=== PATIENT | male | born 1940 | race Caucasian/White ===

== ENCOUNTER 2018-10-08 17:10 | Observation (INO) ==
[2018-10-08] MEDS ORDERED: ALUM/MAG/SIMETH/LIDO VISC 1:1 30 ML BOTTLE PO STA (20:15)
[2018-10-08] MEDS ORDERED: ONDANSETRON 4 MG/2 ML VIAL IV STA (20:15)
[2018-10-08] MEDS ORDERED: INSULIN REGULAR 100 UNIT/ML IV STA ×2 (20:15→22:47)
[2018-10-08 20:33] LABS: Basophils % 0.2 % (0.0-0.8); Eosinophils % 0.1 % (0.00-10.9); Hematocrit 44.5 VOL% (42.0-52.0); Hemoglobin 14.7 GM/DL (14.0-18.0); Immature Granulocytes % 0.7 %; Immature Granulocytes Absolute 0.08 #; Lymphocytes # 0.9 10*3/uL (1.4-4.0); Lymphocytes % 7.1 % (21.2-54.2); Mean Corpuscular Volume 94.7 FL (87-102); Mean Platelet Volume 10.6 FL (9.6-12.0); Monocytes % 6.6 % (1.7-12.7); Neutrophils % 85.3 % (38.7-73.9); Platelet Count 236 T/CUMM (130-400); White Blood Count 12.3 T/CUMM (4-12)
[2018-10-08 20:58] LABS: Bilirubin,Total 1.1 MG/DL (0.2-1.0); Calcium 9.5 MG/DL (8.5-10.1); Osmolality,Calculated 295.5 MOS/KG (273-304); Total Protein 8.1 G/DL (6.4-8.3)
[2018-10-08 21:01] LABS: Troponin I 0.038 NG/ML (0.00-0.045)
[2018-10-08 22:51] LABS: Apearance,Urine CLEAR (Clear); Bilirubin,Urine Negative (Negative); Blood, Urine Negative (Negative); Glucose,Urine (UA) >=500 mg/dL (Negative); Hyaline Casts,Urine 4 /LPF (0-3); Ketones,Urine 80 mg/dL (Negative); Mucus,Urine Occasional /LPF (Occasional); Nitrite,Urine Negative (Negative); Protein,Urine Negative; RBC,Urine 3 /HPF (0-4); Urine Color Yellow (Yellow); Urine Specific Gravity 1.017 (1.001-1.035); Urine Urobilinogen < 2.0 EU/DL (0.2-1.0); WBC,Urine <1 /HPF (0-6)
[2018-10-08] MEDS ORDERED: SODIUM CHLORIDE 0.9% 1,000 ML IV STA (23:17)
[2018-10-08] MEDS ORDERED: ONDANSETRON 4 MG/2 ML VIAL IV PRN (23:57)
[2018-10-08] MEDS ORDERED: GLUCAGON 1 MG VIAL IM PRN (23:57)
[2018-10-08] MEDS ORDERED: ACETAMINOPHEN 325 MG TABLET PO PRN (23:57)
[2018-10-08] MEDS ORDERED: DEXTROSE 50% 25 GM/50 ML SYRINGE IV PRN (23:57)
[2018-10-09] MEDS ORDERED: diphenhydrAMINE CAP 25 MG CAPSULE PO PRN (00:03)
[2018-10-09] MEDS ORDERED: NICOTINE 21 MG/24 HR PATCH TRANSDERM PRN (00:03)
[2018-10-09] MEDS: LACTULOSE 20 GM/30 ML UDCUP PO SCH ×4 (02:39→13:22)
[2018-10-09] MEDS: INSULIN REGULAR 100 UNIT/ML SUBCUT SCH ×2 (02:44→05:39)
[2018-10-09] MEDS: SODIUM CHLORIDE 0.9% 1,000 ML IV SCH ×2 (03:07→12:53)
[2018-10-09 05:34] LABS: Albumin 3.4 G/DL (3.4-5.0); Calcium 8.7 MG/DL (8.5-10.1); Total Protein 6.6 G/DL (6.4-8.3)
[2018-10-09] MEDS ORDERED: INSULIN LISPRO 100 UNIT/ML SUBCUT PRN (07:40)
[2018-10-09] MEDS ORDERED: PANTOPRAZOLE 40 MG TABLET PO SCH (09:00)
[2018-10-09] MEDS ORDERED: POLYETHYLENE GLYCOL POWDER 17 GM PACK PO SCH (09:00)
[2018-10-09] MEDS ORDERED: DOCUSATE SODIUM 100 MG CAPSULE PO SCH (09:00)
[2018-10-09 16:23] VITALS: BP 159/80
[2018-10-09] MEDS ORDERED: glipiZIDE 5 MG TABLET PO SCH (16:30)
[2018-10-09] MEDS ORDERED: sitaGLIPtin 25 MG TABLET PO SCH (21:00)
== END 2018-10-09 17:40 | disposition home or self-care (01) ==
LOC: N.EDINP 17:10 → N.ED 17:10 → N.2E 10-09 00:56
PROVIDERS: ADMIT Hospitalist; ATTEND Hospitalist

== ENCOUNTER 2019-05-25 01:05 | Inpatient (IN) ==
[2019-05-25 01:52] LABS: Basophils # 0.1 10*3/uL (0.0-0.2); Eosinophils # 0.3 10*3/uL (0.0-0.87); Eosinophils % 3.7 % (0.00-10.9); Hemoglobin 14.4 GM/DL (14.0-18.0); Immature Granulocytes % 0.5 %; Immature Granulocytes Absolute 0.04 #; Lymphocytes # 1.2 10*3/uL (1.4-4.0); Mean Corpuscular HGB Conc 33.5 GM/DL (32-36); Mean Corpuscular Volume 93.3 FL (87-102); Mean Platelet Volume 10.2 FL (9.6-12.0); Monocytes % 7.9 % (1.7-12.7); Neutrophils % 70.9 % (38.7-73.9); Platelet Count 191 T/CUMM (130-400); Red Blood Count 4.61 MC/CUMM (3.8-5.5); Red Cell Distribution Width 13.2 % (9.3-17.3); White Blood Count 7.3 T/CUMM (4-12)
[2019-05-25 02:08] LABS: Calcium 8.9 MG/DL (8.5-10.1); Osmolality,Calculated 282.4 MOS/KG (273-304)
[2019-05-25] MEDS ORDERED: MORPHINE 4 MG/1 ML VIAL IV STA (02:38)
[2019-05-25] MEDS ORDERED: HYDROmorphone 2 MG/1 ML VIAL IV PRN ×3 (04:41→08:57)
[2019-05-25] MEDS ORDERED: ONDANSETRON 4 MG/2 ML VIAL IV PRN (04:42)
[2019-05-25] MEDS ORDERED: ACETAMINOPHEN 325 MG TABLET PO PRN (04:42)
[2019-05-25] MEDS ORDERED: SODIUM CHLORIDE 0.9% 1,000 ML IV SCH (05:00)
[2019-05-25] MEDS ORDERED: GLUCAGON 1 MG VIAL IM PRN (05:21)
[2019-05-25] MEDS ORDERED: DEXTROSE 50% 25 GM/50 ML VIAL IV PRN (05:21)
[2019-05-25] MEDS ORDERED: MAGNESIUM SULF RIDER 2 GM in PREMIX 1 EACH IV PRN (05:30)
[2019-05-25] MEDS ORDERED: MAGNESIUM SULF RIDER 4 GM in PREMIX 1 EACH IV PRN (05:30)
[2019-05-25] MEDS ORDERED: POTASSIUM CHLORIDE RIDER 10 MEQ in PREMIX 1 EACH IV PRN (05:30)
[2019-05-25 05:42] LABS: INR 1.1; PT Patient Result 12.3 SECS (9.6-12.2); Partial Thromboplastin Time 26.7 SECS (20.8-36.0)
[2019-05-25] MEDS: INSULIN LISPRO 100 UNIT/ML SUBCUT SCH ×4 (06:38→23:45)
[2019-05-25] MEDS ORDERED: ceFAZolin 2,000 MG in PREMIX 1 EACH IV ONE (06:48)
[2019-05-25] MEDS: atenoloL 50 MG TABLET PO SCH (07:54)
[2019-05-25] MEDS ORDERED: TEMAZEPAM 7.5 MG CAPSULE PO PRN (08:43)
[2019-05-25] MEDS ORDERED: BISACODYL 10 MG SUPP RECTAL PRN (08:43)
[2019-05-25] MEDS ORDERED: LACTULOSE 20 GM/30 ML UDCUP PO PRN (08:43)
[2019-05-25] MEDS ORDERED: PROMETHAZINE 25 MG/1 ML VIAL IM PRN (08:43)
[2019-05-25] MEDS ORDERED: diphenhydrAMINE CAP 25 MG CAPSULE PO PRN (08:43)
[2019-05-25] MEDS ORDERED: INSULIN LISPRO 100 UNIT/ML SUBCUT SCH (09:00)
[2019-05-25] MEDS ORDERED: Fluticasone Furoate-Vilanterol [Breo Ellipta] INH SCH (09:00)
[2019-05-25] MEDS: NORTRIPTYLINE 25 MG CAPSULE PO SCH ×2 (09:12→20:56)
[2019-05-25] MEDS: CALCIUM (CARBONATE) 500 MG TABLET PO SCH (09:12)
[2019-05-25] MEDS: DOCUSATE SODIUM 100 MG CAPSULE PO SCH ×2 (09:12→20:56)
[2019-05-25] MEDS: MAGNESIUM OXIDE 400 MG TABLET PO SCH (09:12)
[2019-05-25] MEDS: MONTELUKAST 10 MG TABLET PO SCH (09:13)
[2019-05-25] MEDS: CLOPIDOGREL 75 MG TABLET PO SCH (09:13)
[2019-05-25] MEDS: FENOFIBRATE 145 MG TABLET PO SCH (09:13)
[2019-05-25] MEDS: PANTOPRAZOLE 40 MG TABLET PO SCH ×2 (09:14→20:56)
[2019-05-25] MEDS: OMEGA 3 ACID ETHYL ESTERS 1 GM CAPSULE PO SCH (09:14)
[2019-05-25] MEDS: MULTIVITAMIN (BEROCCA) TABLET PO SCH ×2 (09:14→20:56)
[2019-05-25] MEDS: SELENIUM 200 MCG TABLET PO SCH ×2 (09:19→20:56)
[2019-05-25] MEDS: LACTATED RINGERS 1,000 ML IV SCH (09:20)
[2019-05-25] MEDS ORDERED: TUBERCULIN SKIN TEST 0.1 ML SYRINGE INTRADERM ONE (09:42)
[2019-05-25] MEDS: FUROSEMIDE 40 MG TABLET PO SCH ×2 (10:07→16:46)
[2019-05-25] MEDS: LOSARTAN 50 MG TABLET PO SCH (10:07)
[2019-05-25] MEDS: Vitamin E 100 UNIT PO SCH ×2 (10:07→20:57)
[2019-05-25] MEDS: ISOSORBIDE MONONITRATE 30 MG TABLET PO SCH (10:07)
[2019-05-25 10:10] LABS: Apearance,Urine CLEAR (Clear); Bilirubin,Urine Negative (Negative); Blood, Urine Negative (Negative); Glucose,Urine (UA) Negative (Negative); Ketones,Urine Negative (Negative); Mucus,Urine Occasional /LPF (Occasional); Nitrite,Urine Negative (Negative); Protein,Urine Negative; RBC,Urine 1 /HPF (0-4); Urine Color Yellow (Yellow); Urine Specific Gravity 1.012 (1.001-1.035); Urine Urobilinogen < 2.0 EU/DL (0.2-1.0); WBC,Urine 1 /HPF (0-6)
[2019-05-25] MEDS ORDERED: propofoL 200 MG/20 ML VIAL IV ONE (10:11)
[2019-05-25] MEDS ORDERED: SEVOFLURANE 1 UNIT/15 MINUTE INH ONE (10:11)
[2019-05-25] MEDS ORDERED: fentaNYL 100 MCG/2 ML VIAL ONE (10:11)
[2019-05-25] MEDS ORDERED: LIDOCAINE 2% 5 ML VIAL ONE (10:11)
[2019-05-25] MEDS ORDERED: GLYCOPYRROLATE 0.4 MG/2 ML VIAL ONE (10:12)
[2019-05-25] MEDS ORDERED: ONDANSETRON 4 MG/2 ML VIAL ONE (10:12)
[2019-05-25] MEDS ORDERED: ETOMIDATE 40 MG/20 ML VIAL IV ONE (10:12)
[2019-05-25] MEDS ORDERED: ACETAMINOPHEN 1,000 MG/100 ML VIAL IV ONE (10:12)
[2019-05-25] MEDS ORDERED: PHENYLEPHRINE 1 MG/10 ML SYRINGE IV ONE (10:12)
[2019-05-25] MEDS ORDERED: LACTATED RINGERS 1,000 ML IV ONE (10:12)
[2019-05-25] MEDS ORDERED: NEOSTIGMINE 10 MG/10 ML VIAL ONE (10:12)
[2019-05-25] MEDS ORDERED: ROCURONIUM 100 MG/10 ML VIAL IV ONE (10:12)
[2019-05-25] MEDS ORDERED: SUCCINYLCHOLINE 200 MG/10 ML VIAL ONE (10:13)
[2019-05-25] MEDS: ceFAZolin 2,000 MG in PREMIX 1 EACH IV SCH ×2 (16:47→23:37)
[2019-05-25] MEDS: ATORVASTATIN 10 MG TABLET PO SCH (20:56)
[2019-05-26] MEDS: LACTATED RINGERS 1,000 ML IV SCH (01:25)
[2019-05-26] MEDS: INSULIN LISPRO 100 UNIT/ML SUBCUT SCH ×4 (06:15→23:23)
[2019-05-26 06:45] LABS: Basophils # 0.1 10*3/uL (0.0-0.2); Basophils % 0.6 % (0.0-0.8); Eosinophils # 0.1 10*3/uL (0.0-0.87); Eosinophils % 0.9 % (0.00-10.9); Hematocrit 30.7 VOL% (42.0-52.0); Hemoglobin 10.4 GM/DL (14.0-18.0); Immature Granulocytes % 0.3 %; Immature Granulocytes Absolute 0.04 #; Lymphocytes % 7.8 % (21.2-54.2); Mean Corpuscular HGB Conc 33.9 GM/DL (32-36); Mean Corpuscular Volume 94.8 FL (87-102); Mean Platelet Volume 10.8 FL (9.6-12.0); Monocytes % 10.7 % (1.7-12.7); Neutrophils % 79.7 % (38.7-73.9); Platelet Count 204 T/CUMM (130-400); Red Blood Count 3.24 MC/CUMM (3.8-5.5); Red Cell Distribution Width 13.3 % (9.3-17.3); White Blood Count 12.9 T/CUMM (4-12)
[2019-05-26 07:07] LABS: Calcium 8.5 MG/DL (8.5-10.1); Osmolality,Calculated 297.5 MOS/KG (273-304)
[2019-05-26] MEDS: FUROSEMIDE 40 MG TABLET PO SCH ×2 (10:16→17:32)
[2019-05-26] MEDS: MULTIVITAMIN (BEROCCA) TABLET PO SCH ×2 (10:18→20:28)
[2019-05-26] MEDS: DOCUSATE SODIUM 100 MG CAPSULE PO SCH ×2 (10:18→20:28)
[2019-05-26] MEDS: MAGNESIUM OXIDE 400 MG TABLET PO SCH (10:19)
[2019-05-26] MEDS: OMEGA 3 ACID ETHYL ESTERS 1 GM CAPSULE PO SCH (10:19)
[2019-05-26] MEDS: NORTRIPTYLINE 25 MG CAPSULE PO SCH ×2 (10:20→20:29)
[2019-05-26] MEDS: CALCIUM (CARBONATE) 500 MG TABLET PO SCH (10:20)
[2019-05-26] MEDS: PANTOPRAZOLE 40 MG TABLET PO SCH ×2 (10:21→20:29)
[2019-05-26] MEDS: CLOPIDOGREL 75 MG TABLET PO SCH (10:21)
[2019-05-26] MEDS: SELENIUM 200 MCG TABLET PO SCH ×2 (10:22→20:29)
[2019-05-26] MEDS: FENOFIBRATE 145 MG TABLET PO SCH (10:23)
[2019-05-26] MEDS: MONTELUKAST 10 MG TABLET PO SCH (10:23)
[2019-05-26] MEDS: Vitamin E 100 UNIT PO SCH ×2 (10:24→20:31)
[2019-05-26] MEDS ORDERED: SODIUM POLYSTYRENE SULFATE 15 GM/60 ML BOTTLE PO STA (10:30)
[2019-05-26] MEDS: atenoloL 50 MG TABLET PO SCH (13:46)
[2019-05-26] MEDS: LOSARTAN 50 MG TABLET PO SCH (13:47)
[2019-05-26] MEDS: ISOSORBIDE MONONITRATE 30 MG TABLET PO SCH (13:47)
[2019-05-26] MEDS: APIXABAN 5 MG TABLET PO SCH (20:28)
[2019-05-26] MEDS: ATORVASTATIN 10 MG TABLET PO SCH (20:29)
[2019-05-27 06:04] LABS: Basophils # 0.1 10*3/uL (0.0-0.2); Basophils % 0.5 % (0.0-0.8); Eosinophils # 0.3 10*3/uL (0.0-0.87); Eosinophils % 2.2 % (0.00-10.9); Hemoglobin 9.4 GM/DL (14.0-18.0); Immature Granulocytes % 0.8 %; Lymphocytes # 1.1 10*3/uL (1.4-4.0); Lymphocytes % 8.5 % (21.2-54.2); Mean Corpuscular HGB Conc 33.6 GM/DL (32-36); Mean Corpuscular Volume 92.4 FL (87-102); Monocytes % 12.2 % (1.7-12.7); NRBC # 0.03 10*3/uL; Neutrophils % 75.8 % (38.7-73.9); Platelet Count 206 T/CUMM (130-400); Red Blood Count 3.03 MC/CUMM (3.8-5.5); Red Cell Distribution Width 13.5 % (9.3-17.3); White Blood Count 12.8 T/CUMM (4-12)
[2019-05-27 06:19] LABS: Calcium 8.7 MG/DL (8.5-10.1); Osmolality,Calculated 292.2 MOS/KG (273-304)
[2019-05-27] MEDS: INSULIN LISPRO 100 UNIT/ML SUBCUT SCH ×4 (06:31→21:48)
[2019-05-27] MEDS ORDERED: SODIUM CHLORIDE 0.9% 500 ML IV ONE (08:41)
[2019-05-27] MEDS: FUROSEMIDE 40 MG TABLET PO SCH (09:03)
[2019-05-27] MEDS: Vitamin E 100 UNIT PO SCH ×2 (09:30→21:52)
[2019-05-27] MEDS: atenoloL 50 MG TABLET PO SCH (09:45)
[2019-05-27] MEDS: DOCUSATE SODIUM 100 MG CAPSULE PO SCH ×2 (09:46→21:41)
[2019-05-27] MEDS: OMEGA 3 ACID ETHYL ESTERS 1 GM CAPSULE PO SCH (09:46)
[2019-05-27] MEDS: ISOSORBIDE MONONITRATE 30 MG TABLET PO SCH (09:46)
[2019-05-27] MEDS: MULTIVITAMIN (BEROCCA) TABLET PO SCH ×2 (09:46→21:40)
[2019-05-27] MEDS: APIXABAN 5 MG TABLET PO SCH (09:46)
[2019-05-27] MEDS: MAGNESIUM OXIDE 400 MG TABLET PO SCH (09:46)
[2019-05-27] MEDS: FENOFIBRATE 145 MG TABLET PO SCH (09:47)
[2019-05-27] MEDS: CLOPIDOGREL 75 MG TABLET PO SCH (09:47)
[2019-05-27] MEDS: PANTOPRAZOLE 40 MG TABLET PO SCH ×2 (09:47→21:41)
[2019-05-27] MEDS: NORTRIPTYLINE 25 MG CAPSULE PO SCH (09:47)
[2019-05-27] MEDS: CALCIUM (CARBONATE) 500 MG TABLET PO SCH (09:47)
[2019-05-27] MEDS: MONTELUKAST 10 MG TABLET PO SCH (09:47)
[2019-05-27] MEDS: SELENIUM 200 MCG TABLET PO SCH ×2 (09:49→21:41)
[2019-05-27] MEDS: MAGNESIUM HYDROXIDE SUSP 30 ML UDCUP PO PRN (09:56)
[2019-05-27 09:58] LABS: Hemoglobin 9.2 GM/DL (14.0-18.0)
[2019-05-27] MEDS: SODIUM CHLORIDE 0.45% 1,000 ML IV SCH (12:56)
[2019-05-27] MEDS: SILODOSIN 8 MG CAPSULE PO SCH (17:09)
[2019-05-27] MEDS: DUTASTERIDE 0.5 MG CAPSULE PO SCH (21:40)
[2019-05-27] MEDS: ATORVASTATIN 10 MG TABLET PO SCH (21:41)
[2019-05-27] MEDS: INSULIN GLARGINE 100 UNIT/ML SUBCUT SCH (21:47)
[2019-05-28 06:03] LABS: Basophils % 0.3 % (0.0-0.8); Eosinophils # 0.2 10*3/uL (0.0-0.87); Eosinophils % 1.4 % (0.00-10.9); Hematocrit 25.5 VOL% (42.0-52.0); Hemoglobin 8.8 GM/DL (14.0-18.0); Immature Granulocytes % 1.2 %; Immature Granulocytes Absolute 0.17 #; Lymphocytes # 1.1 10*3/uL (1.4-4.0); Lymphocytes % 7.8 % (21.2-54.2); Mean Corpuscular HGB Conc 34.5 GM/DL (32-36); Mean Corpuscular Volume 93.8 FL (87-102); Mean Platelet Volume 10.6 FL (9.6-12.0); Monocytes % 9.3 % (1.7-12.7); NRBC # 0.14 10*3/uL; Platelet Count 229 T/CUMM (130-400); Red Blood Count 2.72 MC/CUMM (3.8-5.5); Red Cell Distribution Width 14.1 % (9.3-17.3); White Blood Count 13.9 T/CUMM (4-12)
[2019-05-28 06:18] LABS: Calcium 8.7 MG/DL (8.5-10.1); Osmolality,Calculated 287.3 MOS/KG (273-304)
[2019-05-28] MEDS ORDERED: APIXABAN 5 MG TABLET PO SCH (09:00)
[2019-05-28] MEDS: INSULIN LISPRO 100 UNIT/ML SUBCUT SCH ×4 (09:13→20:45)
[2019-05-28] MEDS: SODIUM CHLORIDE 0.45% 1,000 ML IV SCH ×2 (09:13→10:06)
[2019-05-28] MEDS: MAGNESIUM OXIDE 400 MG TABLET PO SCH (09:29)
[2019-05-28] MEDS: MONTELUKAST 10 MG TABLET PO SCH (09:30)
[2019-05-28] MEDS: ISOSORBIDE MONONITRATE 30 MG TABLET PO SCH (09:30)
[2019-05-28] MEDS: atenoloL 50 MG TABLET PO SCH (09:30)
[2019-05-28] MEDS: CALCIUM (CARBONATE) 500 MG TABLET PO SCH (09:30)
[2019-05-28] MEDS: DOCUSATE SODIUM 100 MG CAPSULE PO SCH ×2 (09:31→20:45)
[2019-05-28] MEDS: MULTIVITAMIN (BEROCCA) TABLET PO SCH ×2 (09:31→20:44)
[2019-05-28] MEDS: FENOFIBRATE 145 MG TABLET PO SCH (09:31)
[2019-05-28] MEDS: OMEGA 3 ACID ETHYL ESTERS 1 GM CAPSULE PO SCH (09:31)
[2019-05-28] MEDS: SELENIUM 200 MCG TABLET PO SCH ×2 (09:32→20:44)
[2019-05-28] MEDS: PANTOPRAZOLE 40 MG TABLET PO SCH ×2 (09:33→20:44)
[2019-05-28] MEDS ORDERED: SODIUM CHLORIDE 0.9% 1,000 ML IV PRN (09:40)
[2019-05-28] MEDS: MAGNESIUM HYDROXIDE SUSP 30 ML UDCUP PO PRN ×2 (09:48→15:40)
[2019-05-28] MEDS: Vitamin E 100 UNIT PO SCH ×2 (10:50→22:41)
[2019-05-28] MEDS: SILODOSIN 8 MG CAPSULE PO SCH (19:06)
[2019-05-28 20:01] LABS: Hematocrit 32.6 VOL% (42.0-52.0); Hemoglobin 10.9 GM/DL (14.0-18.0)
[2019-05-28] MEDS: DUTASTERIDE 0.5 MG CAPSULE PO SCH (20:44)
[2019-05-28] MEDS: ATORVASTATIN 10 MG TABLET PO SCH (20:44)
[2019-05-28] MEDS: INSULIN GLARGINE 100 UNIT/ML SUBCUT SCH (20:45)
[2019-05-28] MEDS: LACTATED RINGERS 1,000 ML IV SCH (22:56)
[2019-05-29] MEDS: SODIUM CHLORIDE 0.45% 1,000 ML IV SCH (02:17)
[2019-05-29 07:04] LABS: Basophils % 0.3 % (0.0-0.8); Eosinophils # 0.2 10*3/uL (0.0-0.87); Eosinophils % 1.3 % (0.00-10.9); Hematocrit 33.9 VOL% (42.0-52.0); Hemoglobin 11.4 GM/DL (14.0-18.0); Immature Granulocytes % 1.2 %; Immature Granulocytes Absolute 0.14 #; Lymphocytes # 1.4 10*3/uL (1.4-4.0); Lymphocytes % 11.5 % (21.2-54.2); Mean Corpuscular HGB Conc 33.6 GM/DL (32-36); Mean Corpuscular Volume 93.1 FL (87-102); Mean Platelet Volume 10.7 FL (9.6-12.0); Monocytes % 11.4 % (1.7-12.7); NRBC # 0.38 10*3/uL; Neutrophils % 74.3 % (38.7-73.9); Platelet Count 233 T/CUMM (130-400); Red Blood Count 3.64 MC/CUMM (3.8-5.5); Red Cell Distribution Width 14.5 % (9.3-17.3)
[2019-05-29 07:32] LABS: Calcium 8.9 MG/DL (8.5-10.1); Osmolality,Calculated 286.1 MOS/KG (273-304)
[2019-05-29 07:35] VITALS: BP 136/83
[2019-05-29] MEDS: INSULIN LISPRO 100 UNIT/ML SUBCUT SCH (07:58)
[2019-05-29] MEDS ORDERED: SODIUM POLYSTYRENE SULFATE 15 GM/60 ML BOTTLE PO ONE (08:03)
[2019-05-29] MEDS: DOCUSATE SODIUM 100 MG CAPSULE PO SCH (08:27)
[2019-05-29] MEDS: MONTELUKAST 10 MG TABLET PO SCH (08:28)
[2019-05-29] MEDS: SELENIUM 200 MCG TABLET PO SCH (08:28)
[2019-05-29] MEDS: OMEGA 3 ACID ETHYL ESTERS 1 GM CAPSULE PO SCH (08:28)
[2019-05-29] MEDS: MAGNESIUM OXIDE 400 MG TABLET PO SCH (08:28)
[2019-05-29] MEDS: PANTOPRAZOLE 40 MG TABLET PO SCH (08:28)
[2019-05-29] MEDS: atenoloL 50 MG TABLET PO SCH (08:28)
[2019-05-29] MEDS: MULTIVITAMIN (BEROCCA) TABLET PO SCH (08:29)
[2019-05-29] MEDS: Vitamin E 100 UNIT PO SCH (08:29)
[2019-05-29] MEDS: FENOFIBRATE 145 MG TABLET PO SCH (08:29)
[2019-05-29] MEDS: CALCIUM (CARBONATE) 500 MG TABLET PO SCH (08:29)
[2019-05-29] MEDS: ISOSORBIDE MONONITRATE 30 MG TABLET PO SCH (08:29)
[2019-05-30] MEDS ORDERED: FUROSEMIDE 40 MG/5 ML UDCUP PO SCH (09:00)
== END 2019-05-29 09:40 | disposition swing bed (61) | DRG 470 ==
LOC: EDBD → EDUNIT# → N.ED 01:05 → N.EDINP 03:07 → N.3E 04:07
PROVIDERS: ADMIT Hospitalist; ATTEND Hospitalist

== ENCOUNTER 2019-06-23 05:39 | Inpatient (IN) ==
[2019-06-22 11:11] LABS: Basophils % 0.4 % (0.0-0.8); Eosinophils # 0.2 10*3/uL (0.0-0.87); Eosinophils % 2.5 % (0.00-10.9); Hematocrit 37.3 VOL% (42.0-52.0); Hemoglobin 11.9 GM/DL (14.0-18.0); Immature Granulocytes % 0.6 %; Immature Granulocytes Absolute 0.05 #; Lymphocytes # 0.7 10*3/uL (1.4-4.0); Lymphocytes % 8.2 % (21.2-54.2); Mean Corpuscular HGB Conc 31.9 GM/DL (32-36); Mean Corpuscular Volume 94.4 FL (87-102); Monocytes % 8.2 % (1.7-12.7); Neutrophils % 80.1 % (38.7-73.9); Platelet Count 420 T/CUMM (130-400); Red Blood Count 3.95 MC/CUMM (3.8-5.5); Red Cell Distribution Width 13.9 % (9.3-17.3); White Blood Count 7.9 T/CUMM (4-12)
[2019-06-23] MEDS ORDERED: DEXMEDETOMIDINE 200 MCG/2 ML VIAL ONE (07:52)
[2019-06-23] MEDS: LACTATED RINGERS 1,000 ML IV SCH ×2 (08:07→15:10)
[2019-06-23] MEDS ORDERED: LIDOCAINE 1% 20 ML VIAL ONE (08:09)
[2019-06-23] MEDS ORDERED: LIDOCAINE 2% 5 ML VIAL ONE (09:06)
[2019-06-23] MEDS ORDERED: propofoL 200 MG/20 ML VIAL IV ONE (09:06)
[2019-06-23] MEDS ORDERED: PHENYLEPHRINE 1 MG/10 ML SYRINGE IV ONE (09:07)
[2019-06-23] MEDS ORDERED: fentaNYL 100 MCG/2 ML VIAL ONE (09:07)
[2019-06-23] MEDS ORDERED: ETOMIDATE 40 MG/20 ML VIAL IV ONE (09:07)
[2019-06-23] MEDS ORDERED: MAGNESIUM HYDROXIDE SUSP 30 ML UDCUP PO PRN (09:11)
[2019-06-23] MEDS ORDERED: diphenhydrAMINE CAP 25 MG CAPSULE PO PRN (09:11)
[2019-06-23] MEDS ORDERED: BISACODYL 10 MG SUPP RECTAL PRN (09:11)
[2019-06-23] MEDS ORDERED: ONDANSETRON 4 MG/2 ML VIAL IV PRN (09:11)
[2019-06-23] MEDS ORDERED: LACTULOSE 20 GM/30 ML UDCUP PO PRN (09:11)
[2019-06-23] MEDS ORDERED: DEXTROSE 10% 25 GM/250 ML BAG IV PRN (09:14)
[2019-06-23] MEDS ORDERED: GLUCAGON 1 MG VIAL IM PRN ×2 (09:14→15:32)
[2019-06-23] MEDS ORDERED: INSULIN REGULAR 100 UNIT/ML SUBCUT SCH (11:30)
[2019-06-23] MEDS ORDERED: INSULIN LISPRO 100 UNIT/ML SUBCUT SCH (11:30)
[2019-06-23] MEDS: MORPHINE 4 MG/1 ML VIAL IV PRN ×2 (15:00→20:33)
[2019-06-23] MEDS ORDERED: DEXTROSE 50% 25 GM/50 ML VIAL IV PRN (15:32)
[2019-06-23] MEDS: SULFAMETHOX/TRIMETHOPRIM 800-160 MG TABLET PO SCH ×2 (20:08→20:34)
[2019-06-23] MEDS: ceFAZolin 1,000 MG in SYRINGE 1 EACH IV SCH ×2 (20:09→22:55)
[2019-06-23] MEDS: SELENIUM 200 MCG TABLET PO SCH (20:34)
[2019-06-23] MEDS: APIXABAN 5 MG TABLET PO SCH (20:34)
[2019-06-23] MEDS: ATORVASTATIN 10 MG TABLET PO SCH (20:34)
[2019-06-23] MEDS: CYANOCOBALAMIN 500 MCG TABLET PO SCH (20:34)
[2019-06-23] MEDS: NORTRIPTYLINE 25 MG CAPSULE PO SCH ×2 (20:34→20:51)
[2019-06-23] MEDS: ASCORBIC ACID 500 MG TABLET PO SCH (20:34)
[2019-06-23] MEDS: PANTOPRAZOLE 40 MG TABLET PO SCH (20:34)
[2019-06-23] MEDS: DUTASTERIDE 0.5 MG CAPSULE PO SCH (20:44)
[2019-06-23] MEDS: INSULIN GLARGINE 100 UNIT/ML SUBCUT SCH (20:45)
[2019-06-23] MEDS: LACTULOSE 20 GM/30 ML UDCUP PO SCH (20:51)
[2019-06-23] MEDS: INSULIN LISPRO 100 UNIT/ML SUBCUT SCH (21:24)
[2019-06-24 05:42] LABS: Basophils # 0.1 10*3/uL (0.0-0.2); Basophils % 0.8 % (0.0-0.8); Eosinophils # 0.2 10*3/uL (0.0-0.87); Eosinophils % 1.9 % (0.00-10.9); Hematocrit 36.3 VOL% (42.0-52.0); Hemoglobin 11.6 GM/DL (14.0-18.0); Immature Granulocytes % 0.5 %; Immature Granulocytes Absolute 0.04 #; Lymphocytes # 0.9 10*3/uL (1.4-4.0); Lymphocytes % 11.1 % (21.2-54.2); Mean Corpuscular Volume 93.6 FL (87-102); Mean Platelet Volume 9.8 FL (9.6-12.0); Monocytes % 10.6 % (1.7-12.7); Neutrophils % 75.1 % (38.7-73.9); Platelet Count 431 T/CUMM (130-400); Red Blood Count 3.88 MC/CUMM (3.8-5.5); Red Cell Distribution Width 13.8 % (9.3-17.3); White Blood Count 7.8 T/CUMM (4-12)
[2019-06-24 06:10] LABS: Calcium 9.1 MG/DL (8.5-10.1)
[2019-06-24 06:11] LABS: Osmolality,Calculated 273.1 MOS/KG (273-304)
[2019-06-24] MEDS: ceFAZolin 1,000 MG in SYRINGE 1 EACH IV SCH ×2 (06:19→15:34)
[2019-06-24] MEDS: MORPHINE 4 MG/1 ML VIAL IV PRN (06:58)
[2019-06-24] MEDS: MAGNESIUM OXIDE 400 MG TABLET PO SCH ×2 (07:47→09:33)
[2019-06-24] MEDS: SILODOSIN 8 MG CAPSULE PO SCH ×2 (07:48→17:46)
[2019-06-24] MEDS: LACTULOSE 20 GM/30 ML UDCUP PO SCH (09:32)
[2019-06-24] MEDS: LOSARTAN 50 MG TABLET PO SCH (09:33)
[2019-06-24] MEDS: SULFAMETHOX/TRIMETHOPRIM 800-160 MG TABLET PO SCH ×2 (09:33→20:31)
[2019-06-24] MEDS: CALCIUM (CARBONATE) 500 MG TABLET PO SCH (09:33)
[2019-06-24] MEDS: MONTELUKAST 10 MG TABLET PO SCH (09:33)
[2019-06-24] MEDS: OMEGA 3 ACID ETHYL ESTERS 1 GM CAPSULE PO SCH (09:33)
[2019-06-24] MEDS: CYANOCOBALAMIN 500 MCG TABLET PO SCH ×2 (09:33→20:31)
[2019-06-24] MEDS: SELENIUM 200 MCG TABLET PO SCH (09:33)
[2019-06-24] MEDS: NORTRIPTYLINE 25 MG CAPSULE PO SCH ×3 (09:33→20:31)
[2019-06-24] MEDS: FUROSEMIDE 40 MG TABLET PO SCH (09:33)
[2019-06-24] MEDS: APIXABAN 5 MG TABLET PO SCH ×2 (09:33→20:31)
[2019-06-24] MEDS: FENOFIBRATE 145 MG TABLET PO SCH (09:34)
[2019-06-24] MEDS: VITAMIN E 400 UNIT CAPSULE PO SCH (09:34)
[2019-06-24] MEDS: ISOSORBIDE MONONITRATE 30 MG TABLET PO SCH (09:34)
[2019-06-24] MEDS: INSULIN LISPRO 100 UNIT/ML SUBCUT SCH ×3 (09:34→20:33)
[2019-06-24] MEDS: ASCORBIC ACID 500 MG TABLET PO SCH ×2 (09:34→20:31)
[2019-06-24] MEDS: atenoloL 50 MG TABLET PO SCH (09:34)
[2019-06-24] MEDS: PANTOPRAZOLE 40 MG TABLET PO SCH ×2 (09:34→20:31)
[2019-06-24] MEDS: FLUTICASONE FUROATE VILANTEROL INH SCH (09:35)
[2019-06-24 10:08] LABS: Bilirubin,Direct 0.18 MG/DL (0.0-0.20); Bilirubin,Indirect 0.2 MG/DL (0.0-1.0); Bilirubin,Total 0.4 MG/DL (0.2-1.0); Total Protein 6.5 G/DL (6.4-8.3)
[2019-06-24] MEDS ORDERED: BISACODYL 5 MG TABLET PO ONE (16:08)
[2019-06-24] MEDS: ATORVASTATIN 10 MG TABLET PO SCH (20:31)
[2019-06-24] MEDS: DUTASTERIDE 0.5 MG CAPSULE PO SCH (20:31)
[2019-06-24] MEDS: INSULIN GLARGINE 100 UNIT/ML SUBCUT SCH (20:36)
[2019-06-25] MEDS: ceFAZolin 1,000 MG in SYRINGE 1 EACH IV SCH ×3 (01:20→16:20)
[2019-06-25] MEDS: NORTRIPTYLINE 25 MG CAPSULE PO SCH ×5 (04:01→21:19)
[2019-06-25] MEDS: LACTULOSE 20 GM/30 ML UDCUP PO SCH ×3 (04:02→21:19)
[2019-06-25] MEDS: SELENIUM 200 MCG TABLET PO SCH ×3 (04:02→21:19)
[2019-06-25 05:04] LABS: Basophils # 0.1 10*3/uL (0.0-0.2); Basophils % 0.8 % (0.0-0.8); Eosinophils # 0.2 10*3/uL (0.0-0.87); Eosinophils % 2.3 % (0.00-10.9); Hemoglobin 11.1 GM/DL (14.0-18.0); Immature Granulocytes % 0.5 %; Immature Granulocytes Absolute 0.04 #; Lymphocytes # 0.8 10*3/uL (1.4-4.0); Lymphocytes % 10.9 % (21.2-54.2); Mean Corpuscular HGB Conc 32.6 GM/DL (32-36); Mean Corpuscular Volume 91.6 FL (87-102); Mean Platelet Volume 9.7 FL (9.6-12.0); Monocytes % 9.2 % (1.7-12.7); Neutrophils % 76.3 % (38.7-73.9); Platelet Count 380 T/CUMM (130-400); Red Blood Count 3.71 MC/CUMM (3.8-5.5); Red Cell Distribution Width 13.5 % (9.3-17.3); White Blood Count 7.4 T/CUMM (4-12)
[2019-06-25 05:43] LABS: Calcium 8.6 MG/DL (8.5-10.1); Osmolality,Calculated 272.2 MOS/KG (273-304)
[2019-06-25] MEDS: FLUTICASONE FUROATE VILANTEROL INH SCH (08:15)
[2019-06-25] MEDS: INSULIN LISPRO 100 UNIT/ML SUBCUT SCH ×3 (08:16→22:58)
[2019-06-25] MEDS: atenoloL 50 MG TABLET PO SCH (08:27)
[2019-06-25] MEDS: VITAMIN E 400 UNIT CAPSULE PO SCH (08:27)
[2019-06-25] MEDS: FENOFIBRATE 145 MG TABLET PO SCH (08:27)
[2019-06-25] MEDS: OMEGA 3 ACID ETHYL ESTERS 1 GM CAPSULE PO SCH (08:27)
[2019-06-25] MEDS: LOSARTAN 50 MG TABLET PO SCH (08:28)
[2019-06-25] MEDS: ISOSORBIDE MONONITRATE 30 MG TABLET PO SCH (08:28)
[2019-06-25] MEDS: ASCORBIC ACID 500 MG TABLET PO SCH ×2 (08:28→21:19)
[2019-06-25] MEDS: FUROSEMIDE 40 MG TABLET PO SCH (08:28)
[2019-06-25] MEDS: SULFAMETHOX/TRIMETHOPRIM 800-160 MG TABLET PO SCH ×2 (08:28→21:18)
[2019-06-25] MEDS: CALCIUM (CARBONATE) 500 MG TABLET PO SCH (08:28)
[2019-06-25] MEDS: PANTOPRAZOLE 40 MG TABLET PO SCH ×2 (08:28→21:19)
[2019-06-25] MEDS: CYANOCOBALAMIN 500 MCG TABLET PO SCH ×2 (08:29→21:19)
[2019-06-25] MEDS: APIXABAN 5 MG TABLET PO SCH ×2 (08:29→21:19)
[2019-06-25] MEDS: MAGNESIUM OXIDE 400 MG TABLET PO SCH (08:38)
[2019-06-25] MEDS: MONTELUKAST 10 MG TABLET PO SCH (08:38)
[2019-06-25] MEDS: SILODOSIN 8 MG CAPSULE PO SCH (16:21)
[2019-06-25] MEDS: DUTASTERIDE 0.5 MG CAPSULE PO SCH (21:18)
[2019-06-25] MEDS: ATORVASTATIN 10 MG TABLET PO SCH (21:18)
[2019-06-25] MEDS: INSULIN GLARGINE 100 UNIT/ML SUBCUT SCH (21:19)
[2019-06-26] MEDS: ceFAZolin 1,000 MG in SYRINGE 1 EACH IV SCH (00:52)
[2019-06-26 05:39] LABS: Basophils % 0.4 % (0.0-0.8); Eosinophils # 0.2 10*3/uL (0.0-0.87); Eosinophils % 1.7 % (0.00-10.9); Hematocrit 34.1 VOL% (42.0-52.0); Hemoglobin 11.1 GM/DL (14.0-18.0); Immature Granulocytes % 0.3 %; Immature Granulocytes Absolute 0.03 #; Lymphocytes # 0.8 10*3/uL (1.4-4.0); Lymphocytes % 8.4 % (21.2-54.2); Mean Corpuscular HGB Conc 32.6 GM/DL (32-36); Mean Corpuscular Volume 91.2 FL (87-102); Mean Platelet Volume 9.5 FL (9.6-12.0); Monocytes % 9.5 % (1.7-12.7); Neutrophils % 79.7 % (38.7-73.9); Platelet Count 364 T/CUMM (130-400); Red Blood Count 3.74 MC/CUMM (3.8-5.5); Red Cell Distribution Width 13.6 % (9.3-17.3)
[2019-06-26] MEDS ORDERED: ceFAZolin 1,000 MG in SYRINGE 1 EACH IV SCH (09:00)
[2019-06-26] MEDS: LACTULOSE 20 GM/30 ML UDCUP PO SCH ×2 (09:19→21:10)
[2019-06-26] MEDS: SULFAMETHOX/TRIMETHOPRIM 800-160 MG TABLET PO SCH ×2 (09:19→21:10)
[2019-06-26] MEDS: FENOFIBRATE 145 MG TABLET PO SCH (09:19)
[2019-06-26] MEDS: OMEGA 3 ACID ETHYL ESTERS 1 GM CAPSULE PO SCH (09:19)
[2019-06-26] MEDS: NORTRIPTYLINE 25 MG CAPSULE PO SCH ×4 (09:20→21:11)
[2019-06-26] MEDS: VITAMIN E 400 UNIT CAPSULE PO SCH (09:20)
[2019-06-26] MEDS: MONTELUKAST 10 MG TABLET PO SCH (09:20)
[2019-06-26] MEDS: CALCIUM (CARBONATE) 500 MG TABLET PO SCH (09:20)
[2019-06-26] MEDS: SELENIUM 200 MCG TABLET PO SCH ×2 (09:20→21:10)
[2019-06-26] MEDS: MAGNESIUM OXIDE 400 MG TABLET PO SCH (09:20)
[2019-06-26] MEDS: APIXABAN 5 MG TABLET PO SCH ×2 (09:21→21:10)
[2019-06-26] MEDS: atenoloL 50 MG TABLET PO SCH (09:21)
[2019-06-26] MEDS: ASCORBIC ACID 500 MG TABLET PO SCH ×2 (09:21→21:10)
[2019-06-26] MEDS: ISOSORBIDE MONONITRATE 30 MG TABLET PO SCH (09:21)
[2019-06-26] MEDS: CYANOCOBALAMIN 500 MCG TABLET PO SCH ×2 (09:21→21:10)
[2019-06-26] MEDS: PANTOPRAZOLE 40 MG TABLET PO SCH ×2 (09:21→21:10)
[2019-06-26] MEDS: LOSARTAN 50 MG TABLET PO SCH (09:21)
[2019-06-26] MEDS: FUROSEMIDE 40 MG TABLET PO SCH (09:21)
[2019-06-26] MEDS: INSULIN LISPRO 100 UNIT/ML SUBCUT SCH ×3 (09:22→21:11)
[2019-06-26] MEDS: FLUTICASONE FUROATE VILANTEROL INH SCH (09:22)
[2019-06-26] MEDS ORDERED: MAGNESIUM CITRATE 300 ML BOTTLE PO ONE (10:57)
[2019-06-26] MEDS: SILODOSIN 8 MG CAPSULE PO SCH (16:08)
[2019-06-26] MEDS: traMADol 50 MG TABLET PO PRN (17:30)
[2019-06-26] MEDS: DUTASTERIDE 0.5 MG CAPSULE PO SCH (21:10)
[2019-06-26] MEDS: ATORVASTATIN 10 MG TABLET PO SCH (21:10)
[2019-06-26] MEDS: INSULIN GLARGINE 100 UNIT/ML SUBCUT SCH (21:10)
[2019-06-27] MEDS: FLUTICASONE FUROATE VILANTEROL INH SCH (08:19)
[2019-06-27] MEDS: INSULIN LISPRO 100 UNIT/ML SUBCUT SCH ×3 (08:19→21:00)
[2019-06-27] MEDS: FENOFIBRATE 145 MG TABLET PO SCH (09:54)
[2019-06-27] MEDS: VITAMIN E 400 UNIT CAPSULE PO SCH (09:54)
[2019-06-27] MEDS: MAGNESIUM OXIDE 400 MG TABLET PO SCH (09:54)
[2019-06-27] MEDS: ASCORBIC ACID 500 MG TABLET PO SCH ×2 (09:54→20:57)
[2019-06-27] MEDS: ISOSORBIDE MONONITRATE 30 MG TABLET PO SCH (09:55)
[2019-06-27] MEDS: SULFAMETHOX/TRIMETHOPRIM 800-160 MG TABLET PO SCH ×2 (09:55→20:57)
[2019-06-27] MEDS: PANTOPRAZOLE 40 MG TABLET PO SCH ×2 (09:55→20:57)
[2019-06-27] MEDS: SELENIUM 200 MCG TABLET PO SCH ×2 (09:55→20:57)
[2019-06-27] MEDS: APIXABAN 5 MG TABLET PO SCH ×2 (09:55→20:57)
[2019-06-27] MEDS: OMEGA 3 ACID ETHYL ESTERS 1 GM CAPSULE PO SCH (09:55)
[2019-06-27] MEDS: CYANOCOBALAMIN 500 MCG TABLET PO SCH ×2 (09:55→20:57)
[2019-06-27] MEDS: FUROSEMIDE 40 MG TABLET PO SCH (09:55)
[2019-06-27] MEDS: MONTELUKAST 10 MG TABLET PO SCH (09:55)
[2019-06-27] MEDS: NORTRIPTYLINE 25 MG CAPSULE PO SCH ×4 (09:55→20:59)
[2019-06-27] MEDS: CALCIUM (CARBONATE) 500 MG TABLET PO SCH (09:55)
[2019-06-27] MEDS: LOSARTAN 50 MG TABLET PO SCH (09:55)
[2019-06-27] MEDS: LACTULOSE 20 GM/30 ML UDCUP PO SCH ×2 (09:56→21:00)
[2019-06-27] MEDS: atenoloL 50 MG TABLET PO SCH (09:56)
[2019-06-27] MEDS: CIPROFLOXACIN INJ 400 MG in PREMIX 1 EACH IV SCH (12:32)
[2019-06-27] MEDS: SILODOSIN 8 MG CAPSULE PO SCH (17:13)
[2019-06-27] MEDS: DUTASTERIDE 0.5 MG CAPSULE PO SCH (20:57)
[2019-06-27] MEDS: ATORVASTATIN 10 MG TABLET PO SCH (20:57)
[2019-06-27] MEDS: INSULIN GLARGINE 100 UNIT/ML SUBCUT SCH (20:59)
[2019-06-28] MEDS: CIPROFLOXACIN INJ 400 MG in PREMIX 1 EACH IV SCH ×3 (00:58→23:21)
[2019-06-28 08:17] LABS: Basophils # 0.1 10*3/uL (0.0-0.2); Basophils % 0.6 % (0.0-0.8); Eosinophils # 0.2 10*3/uL (0.0-0.87); Eosinophils % 2.4 % (0.00-10.9); Hematocrit 36.6 VOL% (42.0-52.0); Hemoglobin 11.5 GM/DL (14.0-18.0); Immature Granulocytes % 0.5 %; Immature Granulocytes Absolute 0.04 #; Lymphocytes # 0.9 10*3/uL (1.4-4.0); Lymphocytes % 10.1 % (21.2-54.2); Mean Corpuscular HGB Conc 31.4 GM/DL (32-36); Mean Corpuscular Volume 92.4 FL (87-102); Mean Platelet Volume 9.5 FL (9.6-12.0); Monocytes % 7.8 % (1.7-12.7); Neutrophils % 78.6 % (38.7-73.9); Platelet Count 368 T/CUMM (130-400); Red Blood Count 3.96 MC/CUMM (3.8-5.5); Red Cell Distribution Width 13.6 % (9.3-17.3); White Blood Count 8.4 T/CUMM (4-12)
[2019-06-28 08:34] LABS: Calcium 9.2 MG/DL (8.5-10.1); Osmolality,Calculated 269.2 MOS/KG (273-304)
[2019-06-28] MEDS: SELENIUM 200 MCG TABLET PO SCH ×2 (08:47→21:14)
[2019-06-28] MEDS: MAGNESIUM OXIDE 400 MG TABLET PO SCH (08:47)
[2019-06-28] MEDS: PANTOPRAZOLE 40 MG TABLET PO SCH ×2 (08:47→21:14)
[2019-06-28] MEDS: NORTRIPTYLINE 25 MG CAPSULE PO SCH ×4 (08:47→21:17)
[2019-06-28] MEDS: VITAMIN E 400 UNIT CAPSULE PO SCH (08:47)
[2019-06-28] MEDS: FENOFIBRATE 145 MG TABLET PO SCH (08:48)
[2019-06-28] MEDS: CALCIUM (CARBONATE) 500 MG TABLET PO SCH (08:48)
[2019-06-28] MEDS: ISOSORBIDE MONONITRATE 30 MG TABLET PO SCH (08:48)
[2019-06-28] MEDS: FUROSEMIDE 40 MG TABLET PO SCH (08:48)
[2019-06-28] MEDS: SULFAMETHOX/TRIMETHOPRIM 800-160 MG TABLET PO SCH ×2 (08:48→21:14)
[2019-06-28] MEDS: LOSARTAN 50 MG TABLET PO SCH (08:49)
[2019-06-28] MEDS: CYANOCOBALAMIN 500 MCG TABLET PO SCH ×2 (08:49→21:14)
[2019-06-28] MEDS: MONTELUKAST 10 MG TABLET PO SCH (08:49)
[2019-06-28] MEDS: atenoloL 50 MG TABLET PO SCH (08:49)
[2019-06-28] MEDS: OMEGA 3 ACID ETHYL ESTERS 1 GM CAPSULE PO SCH (08:49)
[2019-06-28] MEDS: APIXABAN 5 MG TABLET PO SCH ×2 (08:49→21:16)
[2019-06-28] MEDS: ASCORBIC ACID 500 MG TABLET PO SCH ×2 (08:49→21:14)
[2019-06-28] MEDS: LACTULOSE 20 GM/30 ML UDCUP PO SCH ×2 (08:50→21:16)
[2019-06-28] MEDS: INSULIN LISPRO 100 UNIT/ML SUBCUT SCH ×4 (08:51→21:14)
[2019-06-28] MEDS: FLUTICASONE FUROATE VILANTEROL INH SCH (08:51)
[2019-06-28] MEDS: SILODOSIN 8 MG CAPSULE PO SCH (16:44)
[2019-06-28] MEDS: ATORVASTATIN 10 MG TABLET PO SCH (21:14)
[2019-06-28] MEDS: INSULIN GLARGINE 100 UNIT/ML SUBCUT SCH (21:14)
[2019-06-28] MEDS: DUTASTERIDE 0.5 MG CAPSULE PO SCH (21:16)
[2019-06-29] MEDS ORDERED: DEXMEDETOMIDINE 200 MCG/2 ML VIAL ONE (07:03)
[2019-06-29] MEDS ORDERED: LACTATED RINGERS 1,000 ML IV SCH (08:30)
[2019-06-29] MEDS ORDERED: LIDOCAINE 1% 20 ML VIAL ONE (08:38)
[2019-06-29] MEDS ORDERED: VANCOMYCIN 1,000 MG VIAL ONE (09:37)
[2019-06-29] MEDS ORDERED: TOBRAMYCIN 1.2 GM VIAL TOP ONE ×2 (09:37→09:41)
[2019-06-29] MEDS ORDERED: diphenhydrAMINE 50 MG/1 ML VIAL IV PRN (10:45)
[2019-06-29] MEDS ORDERED: PROMETHAZINE INJ 25 MG in SODIUM CHLORIDE 0.9% 50 ML IV PRN (10:45)
[2019-06-29] MEDS ORDERED: ONDANSETRON 4 MG/2 ML VIAL IV PRN (10:45)
[2019-06-29] MEDS ORDERED: MEPERIDINE 25 MG/1 ML VIAL IV PRN (10:45)
[2019-06-29] MEDS ORDERED: fentaNYL 100 MCG/2 ML VIAL ONE (10:46)
[2019-06-29] MEDS ORDERED: LIDOCAINE 2% 5 ML VIAL ONE (10:46)
[2019-06-29] MEDS ORDERED: PHENYLEPHRINE 1 MG/10 ML SYRINGE IV ONE (10:46)
[2019-06-29] MEDS ORDERED: ePHEDrine 50 MG/ML AMP ONE (10:46)
[2019-06-29] MEDS ORDERED: PHENYLEPHRINE 10 MG/1 ML VIAL IV ONE (10:46)
[2019-06-29] MEDS ORDERED: propofoL 200 MG/20 ML VIAL IV ONE (10:46)
[2019-06-29] MEDS ORDERED: SODIUM CHLORIDE 0.9% 300 ML IV ONE (10:47)
[2019-06-29] MEDS ORDERED: SODIUM CHLORIDE 0.9% 250 ML IV ONE (10:47)
[2019-06-29] MEDS ORDERED: GLUCAGON 1 MG VIAL IM PRN ×2 (10:59→11:00)
[2019-06-29] MEDS ORDERED: DEXTROSE 50% 25 GM/50 ML VIAL IV PRN (11:00)
[2019-06-29] MEDS: OMEGA 3 ACID ETHYL ESTERS 1 GM CAPSULE PO SCH (12:00)
[2019-06-29] MEDS: LACTULOSE 20 GM/30 ML UDCUP PO SCH ×2 (12:00→21:27)
[2019-06-29] MEDS: FLUTICASONE FUROATE VILANTEROL INH SCH (12:00)
[2019-06-29] MEDS: FUROSEMIDE 40 MG TABLET PO SCH (12:00)
[2019-06-29] MEDS: LOSARTAN 50 MG TABLET PO SCH (12:00)
[2019-06-29] MEDS: ISOSORBIDE MONONITRATE 30 MG TABLET PO SCH (12:00)
[2019-06-29] MEDS: SULFAMETHOX/TRIMETHOPRIM 800-160 MG TABLET PO SCH ×2 (12:00→21:28)
[2019-06-29] MEDS: CYANOCOBALAMIN 500 MCG TABLET PO SCH ×2 (12:01→21:28)
[2019-06-29] MEDS: CALCIUM (CARBONATE) 500 MG TABLET PO SCH (12:01)
[2019-06-29] MEDS: FENOFIBRATE 145 MG TABLET PO SCH (12:01)
[2019-06-29] MEDS: SELENIUM 200 MCG TABLET PO SCH ×2 (12:01→21:28)
[2019-06-29] MEDS: MAGNESIUM OXIDE 400 MG TABLET PO SCH (12:01)
[2019-06-29] MEDS: MONTELUKAST 10 MG TABLET PO SCH (12:01)
[2019-06-29] MEDS: NORTRIPTYLINE 25 MG CAPSULE PO SCH ×3 (12:01→21:28)
[2019-06-29] MEDS: atenoloL 50 MG TABLET PO SCH (12:01)
[2019-06-29] MEDS: ASCORBIC ACID 500 MG TABLET PO SCH ×2 (12:01→21:28)
[2019-06-29] MEDS: PANTOPRAZOLE 40 MG TABLET PO SCH ×2 (12:01→21:28)
[2019-06-29] MEDS: VITAMIN E 400 UNIT CAPSULE PO SCH (12:01)
[2019-06-29] MEDS: INSULIN REGULAR 100 UNIT/ML SUBCUT SCH ×3 (12:16→21:29)
[2019-06-29] MEDS: MORPHINE 4 MG/1 ML VIAL IV PRN (12:17)
[2019-06-29] MEDS: CIPROFLOXACIN INJ 400 MG in PREMIX 1 EACH IV SCH (12:17)
[2019-06-29] MEDS: INSULIN LISPRO 100 UNIT/ML SUBCUT SCH (12:34)
[2019-06-29] MEDS: APIXABAN 5 MG TABLET PO SCH (12:34)
[2019-06-29] MEDS: SILODOSIN 8 MG CAPSULE PO SCH (17:00)
[2019-06-29] MEDS: ATORVASTATIN 10 MG TABLET PO SCH (21:28)
[2019-06-29] MEDS: DUTASTERIDE 0.5 MG CAPSULE PO SCH (21:28)
[2019-06-29] MEDS: INSULIN GLARGINE 100 UNIT/ML SUBCUT SCH (21:28)
[2019-06-29] MEDS: APIXABAN 2.5 MG TABLET PO SCH (21:28)
[2019-06-30] MEDS: NORTRIPTYLINE 25 MG CAPSULE PO SCH ×5 (00:24→21:19)
[2019-06-30] MEDS: MORPHINE 4 MG/1 ML VIAL IV PRN (00:34)
[2019-06-30] MEDS: CIPROFLOXACIN INJ 400 MG in PREMIX 1 EACH IV SCH ×2 (00:36→11:52)
[2019-06-30 05:50] LABS: Basophils # 0.1 10*3/uL (0.0-0.2); Basophils % 0.5 % (0.0-0.8); Eosinophils % 0.3 % (0.00-10.9); Hematocrit 26.6 VOL% (42.0-52.0); Hemoglobin 8.6 GM/DL (14.0-18.0); Immature Granulocytes % 0.6 %; Immature Granulocytes Absolute 0.07 #; Lymphocytes # 1.2 10*3/uL (1.4-4.0); Lymphocytes % 10.2 % (21.2-54.2); Mean Corpuscular HGB Conc 32.3 GM/DL (32-36); Mean Corpuscular Volume 91.7 FL (87-102); Mean Platelet Volume 10.4 FL (9.6-12.0); Monocytes % 9.6 % (1.7-12.7); Neutrophils % 78.8 % (38.7-73.9); Platelet Count 329 T/CUMM (130-400); Red Cell Distribution Width 13.4 % (9.3-17.3); White Blood Count 12.1 T/CUMM (4-12)
[2019-06-30 06:06] LABS: Calcium 8.8 MG/DL (8.5-10.1); Osmolality,Calculated 272.8 MOS/KG (273-304)
[2019-06-30] MEDS: MONTELUKAST 10 MG TABLET PO SCH (08:49)
[2019-06-30] MEDS: FENOFIBRATE 145 MG TABLET PO SCH (08:49)
[2019-06-30] MEDS: VITAMIN E 400 UNIT CAPSULE PO SCH (08:49)
[2019-06-30] MEDS: CALCIUM (CARBONATE) 500 MG TABLET PO SCH (08:49)
[2019-06-30] MEDS: SELENIUM 200 MCG TABLET PO SCH ×2 (08:49→21:17)
[2019-06-30] MEDS: atenoloL 50 MG TABLET PO SCH (08:50)
[2019-06-30] MEDS: SULFAMETHOX/TRIMETHOPRIM 800-160 MG TABLET PO SCH ×2 (08:50→21:18)
[2019-06-30] MEDS: LOSARTAN 50 MG TABLET PO SCH (08:50)
[2019-06-30] MEDS: PANTOPRAZOLE 40 MG TABLET PO SCH ×2 (08:50→21:17)
[2019-06-30] MEDS: MAGNESIUM OXIDE 400 MG TABLET PO SCH (08:50)
[2019-06-30] MEDS: OMEGA 3 ACID ETHYL ESTERS 1 GM CAPSULE PO SCH (08:50)
[2019-06-30] MEDS: APIXABAN 2.5 MG TABLET PO SCH ×2 (08:51→21:19)
[2019-06-30] MEDS: ASCORBIC ACID 500 MG TABLET PO SCH ×2 (08:51→21:17)
[2019-06-30] MEDS: CYANOCOBALAMIN 500 MCG TABLET PO SCH ×2 (08:51→21:17)
[2019-06-30] MEDS: FUROSEMIDE 40 MG TABLET PO SCH (08:51)
[2019-06-30] MEDS: ISOSORBIDE MONONITRATE 30 MG TABLET PO SCH (08:51)
[2019-06-30] MEDS: FLUTICASONE FUROATE VILANTEROL INH SCH (08:51)
[2019-06-30] MEDS: INSULIN REGULAR 100 UNIT/ML SUBCUT SCH ×4 (08:52→21:18)
[2019-06-30] MEDS: LACTULOSE 20 GM/30 ML UDCUP PO SCH ×2 (08:57→21:18)
[2019-06-30] MEDS: SILODOSIN 8 MG CAPSULE PO SCH (16:48)
[2019-06-30] MEDS: ATORVASTATIN 10 MG TABLET PO SCH (21:17)
[2019-06-30] MEDS: DUTASTERIDE 0.5 MG CAPSULE PO SCH (21:18)
[2019-06-30] MEDS: INSULIN GLARGINE 100 UNIT/ML SUBCUT SCH (21:18)
[2019-07-01] MEDS: CIPROFLOXACIN INJ 400 MG in PREMIX 1 EACH IV SCH (01:49)
[2019-07-01] MEDS ORDERED: SODIUM CHLORIDE 0.9% 500 ML IV ONE (06:27)
[2019-07-01] MEDS ORDERED: SODIUM CHLORIDE 0.9% 1,000 ML IV PRN ×4 (06:30→14:11)
[2019-07-01] MEDS ORDERED: PHENYLEPHRINE DRIP 20 MG/250 ML PREMIX IV ONE (07:06)
[2019-07-01] MEDS ORDERED: EPINEPHrine 1 MG/ML VIAL ONE (07:06)
[2019-07-01] MEDS ORDERED: TOBRAMYCIN 1.2 GM VIAL TOP ONE (07:17)
[2019-07-01] MEDS ORDERED: VANCOMYCIN 1,000 MG VIAL ONE (07:17)
[2019-07-01] MEDS ORDERED: DEXMEDETOMIDINE 200 MCG/2 ML VIAL ONE (07:32)
[2019-07-01 07:42] LABS: Calcium 8.2 MG/DL (8.5-10.1); Osmolality,Calculated 274.1 MOS/KG (273-304)
[2019-07-01 07:56] LABS: Basophils # 0.1 10*3/uL (0.0-0.2); Basophils % 0.4 % (0.0-0.8); Eosinophils # 0.2 10*3/uL (0.0-0.87); Eosinophils % 1.7 % (0.00-10.9); Hematocrit 21.1 VOL% (42.0-52.0); Immature Granulocytes % 0.7 %; Lymphocytes # 0.9 10*3/uL (1.4-4.0); Lymphocytes % 6.2 % (21.2-54.2); Mean Corpuscular HGB Conc 33.2 GM/DL (32-36); Mean Corpuscular Volume 90.6 FL (87-102); Mean Platelet Volume 10.2 FL (9.6-12.0); Platelet Count 340 T/CUMM (130-400); Red Blood Count 2.33 MC/CUMM (3.8-5.5); Red Cell Distribution Width 13.6 % (9.3-17.3); White Blood Count 13.8 T/CUMM (4-12)
[2019-07-01] MEDS ORDERED: SODIUM CHLORIDE 0.9% 1,000 ML IV ONE ×2 (08:36→11:29)
[2019-07-01] MEDS: OMEGA 3 ACID ETHYL ESTERS 1 GM CAPSULE PO SCH (09:40)
[2019-07-01] MEDS: FLUTICASONE FUROATE VILANTEROL INH SCH (09:40)
[2019-07-01] MEDS: LACTULOSE 20 GM/30 ML UDCUP PO SCH ×2 (09:40→20:31)
[2019-07-01] MEDS: CALCIUM (CARBONATE) 500 MG TABLET PO SCH (09:41)
[2019-07-01] MEDS: MONTELUKAST 10 MG TABLET PO SCH (09:41)
[2019-07-01] MEDS: PANTOPRAZOLE 40 MG TABLET PO SCH ×2 (09:41→20:28)
[2019-07-01] MEDS: MAGNESIUM OXIDE 400 MG TABLET PO SCH (09:41)
[2019-07-01] MEDS: SELENIUM 200 MCG TABLET PO SCH ×2 (09:41→20:28)
[2019-07-01] MEDS: atenoloL 50 MG TABLET PO SCH (09:41)
[2019-07-01] MEDS: VITAMIN E 400 UNIT CAPSULE PO SCH (09:42)
[2019-07-01] MEDS: CYANOCOBALAMIN 500 MCG TABLET PO SCH ×2 (09:42→20:28)
[2019-07-01] MEDS: ASCORBIC ACID 500 MG TABLET PO SCH ×2 (09:42→20:28)
[2019-07-01] MEDS: FENOFIBRATE 145 MG TABLET PO SCH (09:42)
[2019-07-01] MEDS: APIXABAN 2.5 MG TABLET PO SCH (09:49)
[2019-07-01] MEDS: INSULIN REGULAR 100 UNIT/ML SUBCUT SCH ×4 (09:49→20:30)
[2019-07-01] MEDS: INSULIN REGULAR 10 UNIT, CALCIUM GLUCONATE 1,000 MG in DEXTROSE 10% 250 ML IV STA ×2 (09:49→11:14)
[2019-07-01 10:54] LABS: Troponin I 0.035 NG/ML (0.00-0.045)
[2019-07-01] MEDS: LINEZOLID INJ 600 MG in PREMIX 1 EACH IV SCH ×2 (11:16→20:31)
[2019-07-01] MEDS ORDERED: NOREPINEPHRINE 16 MG in SODIUM CHLORIDE 0.9% 234 ML IV PRN (12:00)
[2019-07-01] MEDS ORDERED: NOREPINEPHRINE 8 MG in SODIUM CHLORIDE 0.9% 242 ML IV PRN (12:04)
[2019-07-01] MEDS: NOREPINEPHRINE 8 MG in SODIUM CHLORIDE 0.9% 242 ML IV PRN (12:28)
[2019-07-01] MEDS: SODIUM CHLORIDE 0.9% 1,000 ML IV SCH ×2 (12:30→22:50)
[2019-07-01] MEDS: MORPHINE 4 MG/1 ML VIAL IV PRN ×2 (13:29→21:56)
[2019-07-01 14:15] LABS: Hematocrit 30.3 VOL% (42.0-52.0)
[2019-07-01 14:16] LABS: Hemoglobin 9.8 GM/DL (14.0-18.0)
[2019-07-01 16:54] LABS: Calcium 8.2 MG/DL (8.5-10.1); Osmolality,Calculated 272.6 MOS/KG (273-304)
[2019-07-01] MEDS ORDERED: HEPARIN 5,000 UNIT/1 ML VIAL SUBCUT SCH (19:00)
[2019-07-01 19:58] LABS: Basophils % 0.2 % (0.0-0.8); Eosinophils # 0.1 10*3/uL (0.0-0.87); Eosinophils % 0.8 % (0.00-10.9); Hemoglobin 9.4 GM/DL (14.0-18.0); Immature Granulocytes % 0.7 %; Lymphocytes # 1.1 10*3/uL (1.4-4.0); Lymphocytes % 7.7 % (21.2-54.2); Mean Corpuscular HGB Conc 33.6 GM/DL (32-36); Monocytes % 8.7 % (1.7-12.7); Neutrophils % 81.9 % (38.7-73.9); Platelet Count 384 T/CUMM (130-400); Red Blood Count 3.11 MC/CUMM (3.8-5.5); Red Cell Distribution Width 14.5 % (9.3-17.3); White Blood Count 14.4 T/CUMM (4-12)
[2019-07-01] MEDS ORDERED: ENOXAPARIN 80 MG/0.8 ML SYRINGE SUBCUT SCH (20:00)
[2019-07-01] MEDS ORDERED: SODIUM CHLORIDE 0.9% 1,000 ML IV SCH (20:00)
[2019-07-01 20:11] LABS: INR 1.5; PT Patient Result 15.9 SECS (9.6-12.2)
[2019-07-01 20:17] LABS: Partial Thromboplastin Time 40.4 SECS (20.8-36.0)
[2019-07-01] MEDS: INSULIN GLARGINE 100 UNIT/ML SUBCUT SCH (20:28)
[2019-07-01] MEDS: ATORVASTATIN 40 MG TABLET PO SCH (20:28)
[2019-07-01] MEDS: DUTASTERIDE 0.5 MG CAPSULE PO SCH (20:28)
[2019-07-01 20:58] LABS: Albumin 1.7 G/DL (3.4-5.0); Bilirubin,Total 0.4 MG/DL (0.2-1.0); Calcium 8.2 MG/DL (8.5-10.1); Osmolality,Calculated 272.5 MOS/KG (273-304); Total Protein 5.7 G/DL (6.4-8.3)
[2019-07-01] MEDS ORDERED: ROSUVASTATIN 20 MG TABLET PO SCH (21:00)
[2019-07-02] MEDS ORDERED: CIPROFLOXACIN INJ 400 MG in PREMIX 1 EACH IV SCH
[2019-07-02 02:45] LABS: Basophils # 0.1 10*3/uL (0.0-0.2); Basophils % 0.3 % (0.0-0.8); Eosinophils # 0.3 10*3/uL (0.0-0.87); Hematocrit 28.4 VOL% (42.0-52.0); Hemoglobin 9.6 GM/DL (14.0-18.0); Immature Granulocytes % 0.8 %; Immature Granulocytes Absolute 0.13 #; Lymphocytes # 2.2 10*3/uL (1.4-4.0); Lymphocytes % 13.3 % (21.2-54.2); Mean Corpuscular HGB Conc 33.8 GM/DL (32-36); Mean Corpuscular Volume 88.5 FL (87-102); Mean Platelet Volume 9.9 FL (9.6-12.0); Monocytes % 9.5 % (1.7-12.7); NRBC # 0.05 10*3/uL; Neutrophils % 74.1 % (38.7-73.9); Platelet Count 389 T/CUMM (130-400); Red Blood Count 3.21 MC/CUMM (3.8-5.5); Red Cell Distribution Width 14.2 % (9.3-17.3); White Blood Count 16.5 T/CUMM (4-12)
[2019-07-02 03:06] LABS: Alanine Aminotransferase 73 U/L (16-61); Albumin 1.7 G/DL (3.4-5.0); Alkaline Phosphatase 174 U/L (45-117); Aspartate Amino Transferase 244 U/L (0-37); Bilirubin,Total < 0.39 MG/DL (0.2-1.0); Blood Urea Nitrogen 47 MG/DL (7-18); Calcium 8.1 MG/DL (8.5-10.1); Estimated Glom Filtration Rate 14 ML/MIN; Glucose 53 MG/DL (74-106); Osmolality,Calculated 268.8 MOS/KG (273-304); Total Protein 5.9 G/DL (6.4-8.3)
[2019-07-02] MEDS: DEXTROSE 10% 250 ML BAG IV PRN (03:20)
[2019-07-02] MEDS: NOREPINEPHRINE 8 MG in SODIUM CHLORIDE 0.9% 242 ML IV PRN (05:42)
[2019-07-02] MEDS: INSULIN REGULAR 100 UNIT/ML SUBCUT SCH ×4 (08:35→20:15)
[2019-07-02] MEDS: DEXTROSE 5% NACL 0.9% 1,000 ML IV SCH ×2 (08:39→18:19)
[2019-07-02 08:55] LABS: ABG Base Excess -4.6 MMOL/L (-2.5-2.5); ABG HCO3 20.5 MMOL/L (20-26); ABG PCO2 29.1 MM HG (35-48); ABG PH 7.421 (7.35-7.45); ABG PO2 86.5 MM HG (80-95); ABG TCO2 17.4 MMOL/L (23-27); Allen Test Positive; Pt O2 Delivery Device Room Air
[2019-07-02 09:08] LABS: Apearance,Urine CLOUDY (Clear); Bacteria,Urine Occasional /HPF (Few); Bilirubin,Urine Negative (Negative); Blood, Urine Moderate mg/dL (Negative); Glucose,Urine (UA) Negative (Negative); Hyaline Casts,Urine 3 /LPF (0-3); Ketones,Urine Negative (Negative); Mucus,Urine Occasional /LPF (Occasional); Nitrite,Urine Negative (Negative); Protein,Urine Negative; RBC,Urine 48 /HPF (0-4); Squamous Epithelial Cell,Urine Occasional /HPF (0-10); Urine Color Yellow (Yellow); Urine Specific Gravity 1.013 (1.001-1.035); Urine Urobilinogen < 2.0 EU/DL (0.2-1.0); WBC,Urine 34 /HPF (0-6)
[2019-07-02] MEDS: CALCIUM (CARBONATE) 500 MG TABLET PO SCH (10:24)
[2019-07-02] MEDS: FENOFIBRATE 145 MG TABLET PO SCH (10:25)
[2019-07-02] MEDS: MAGNESIUM OXIDE 400 MG TABLET PO SCH (10:25)
[2019-07-02] MEDS: OMEGA 3 ACID ETHYL ESTERS 1 GM CAPSULE PO SCH (10:25)
[2019-07-02] MEDS: MONTELUKAST 10 MG TABLET PO SCH (10:25)
[2019-07-02] MEDS: traMADol 50 MG TABLET PO PRN (10:25)
[2019-07-02] MEDS: ASCORBIC ACID 500 MG TABLET PO SCH ×2 (10:25→20:14)
[2019-07-02] MEDS: LACTULOSE 20 GM/30 ML UDCUP PO SCH ×2 (10:26→20:18)
[2019-07-02] MEDS: VITAMIN E 400 UNIT CAPSULE PO SCH (10:26)
[2019-07-02] MEDS: CYANOCOBALAMIN 500 MCG TABLET PO SCH ×2 (10:32→20:14)
[2019-07-02] MEDS: FLUTICASONE FUROATE VILANTEROL INH SCH (10:37)
[2019-07-02] MEDS: PANTOPRAZOLE 40 MG TABLET PO SCH ×2 (10:40→20:12)
[2019-07-02] MEDS: cefTRIAXone 1,000 MG in SYRINGE 1 EACH IV SCH (10:46)
[2019-07-02] MEDS: LINEZOLID INJ 600 MG in PREMIX 1 EACH IV SCH ×2 (10:47→20:22)
[2019-07-02] MEDS: HEPARIN DRIP 25,000 UNITS/500 ML PREMIX IV SCH (10:47)
[2019-07-02] MEDS: MORPHINE 4 MG/1 ML VIAL IV PRN ×3 (11:16→23:04)
[2019-07-02] MEDS: SELENIUM 200 MCG TABLET PO SCH ×2 (11:58→20:18)
[2019-07-02] MEDS: ASPIRIN EC 81 MG TABLET PO SCH (20:12)
[2019-07-02] MEDS: ATORVASTATIN 40 MG TABLET PO SCH (20:13)
[2019-07-02] MEDS: DUTASTERIDE 0.5 MG CAPSULE PO SCH (20:13)
[2019-07-02] MEDS: INSULIN GLARGINE 100 UNIT/ML SUBCUT SCH (20:16)
[2019-07-03 01:00] LABS: Basophils % 0.1 % (0.0-0.8); Eosinophils % 0.1 % (0.00-10.9); Hematocrit 24.6 VOL% (42.0-52.0); Hemoglobin 8.2 GM/DL (14.0-18.0); Immature Granulocytes % 1.2 %; Immature Granulocytes Absolute 0.17 #; Lymphocytes # 0.7 10*3/uL (1.4-4.0); Mean Corpuscular HGB Conc 33.3 GM/DL (32-36); Mean Corpuscular Volume 87.9 FL (87-102); Mean Platelet Volume 10.1 FL (9.6-12.0); NRBC # 0.04 10*3/uL; Neutrophils % 84.6 % (38.7-73.9); Platelet Count 296 T/CUMM (130-400); Red Cell Distribution Width 15.2 % (9.3-17.3); White Blood Count 14.4 T/CUMM (4-12)
[2019-07-03 01:03] LABS: Calcium 7.4 MG/DL (8.5-10.1); Osmolality,Calculated 273.5 MOS/KG (273-304)
[2019-07-03 01:30] LABS: CKMB % 7.2 %
[2019-07-03 01:56] LABS: Troponin I 8.08 NG/ML (0.00-0.045)
[2019-07-03] MEDS: MORPHINE 4 MG/1 ML VIAL IV PRN ×4 (03:07→16:04)
[2019-07-03] MEDS: DEXTROSE 5% NACL 0.9% 1,000 ML IV SCH (04:15)
[2019-07-03 05:06] LABS: Basophils % 0.2 % (0.0-0.8); Eosinophils % 0.3 % (0.00-10.9); Hematocrit 23.5 VOL% (42.0-52.0); Hemoglobin 7.6 GM/DL (14.0-18.0); Immature Granulocytes % 0.9 %; Immature Granulocytes Absolute 0.13 #; Lymphocytes % 7.5 % (21.2-54.2); Mean Corpuscular HGB Conc 32.3 GM/DL (32-36); Mean Corpuscular Volume 87.7 FL (87-102); Monocytes % 10.1 % (1.7-12.7); NRBC # 0.03 10*3/uL; Platelet Count 279 T/CUMM (130-400); Red Blood Count 2.68 MC/CUMM (3.8-5.5); Red Cell Distribution Width 15.7 % (9.3-17.3); White Blood Count 13.7 T/CUMM (4-12)
[2019-07-03] MEDS: INSULIN REGULAR 100 UNIT/ML SUBCUT SCH ×5 (08:31→21:22)
[2019-07-03] MEDS: FLUTICASONE FUROATE VILANTEROL INH SCH (09:13)
[2019-07-03] MEDS: ASPIRIN EC 81 MG TABLET PO SCH (09:27)
[2019-07-03] MEDS: PANTOPRAZOLE 40 MG TABLET PO SCH ×2 (09:27→21:42)
[2019-07-03] MEDS: MAGNESIUM OXIDE 400 MG TABLET PO SCH (09:28)
[2019-07-03] MEDS: LACTULOSE 20 GM/30 ML UDCUP PO SCH ×2 (09:29→21:40)
[2019-07-03] MEDS: MONTELUKAST 10 MG TABLET PO SCH (09:31)
[2019-07-03] MEDS: FENOFIBRATE 145 MG TABLET PO SCH (09:31)
[2019-07-03] MEDS: LINEZOLID INJ 600 MG in PREMIX 1 EACH IV SCH ×2 (09:42→21:43)
[2019-07-03] MEDS: cefTRIAXone 1,000 MG in SYRINGE 1 EACH IV SCH (09:43)
[2019-07-03] MEDS: CALCIUM (CARBONATE) 500 MG TABLET PO SCH (09:46)
[2019-07-03] MEDS: CYANOCOBALAMIN 500 MCG TABLET PO SCH ×2 (09:46→21:43)
[2019-07-03] MEDS: OMEGA 3 ACID ETHYL ESTERS 1 GM CAPSULE PO SCH (09:46)
[2019-07-03] MEDS: SELENIUM 200 MCG TABLET PO SCH ×3 (09:46→21:42)
[2019-07-03] MEDS: VITAMIN E 400 UNIT CAPSULE PO SCH (09:47)
[2019-07-03] MEDS: ASCORBIC ACID 500 MG TABLET PO SCH ×2 (09:47→21:43)
[2019-07-03] MEDS: SODIUM CHLORIDE 0.9% 1,000 ML IV SCH ×2 (09:50→22:57)
[2019-07-03 14:50] LABS: Hematocrit 27.7 VOL% (42.0-52.0)
[2019-07-03] MEDS: INSULIN GLARGINE 100 UNIT/ML SUBCUT SCH (21:34)
[2019-07-03] MEDS: DUTASTERIDE 0.5 MG CAPSULE PO SCH ×2 (21:37→21:42)
[2019-07-03] MEDS: ATORVASTATIN 40 MG TABLET PO SCH (21:42)
[2019-07-03] MEDS: HEPARIN DRIP 25,000 UNITS/500 ML PREMIX IV SCH (22:58)
[2019-07-04] MEDS: MORPHINE 4 MG/1 ML VIAL IV PRN ×2 (00:18→22:50)
[2019-07-04 03:34] LABS: Basophils # 0.1 10*3/uL (0.0-0.2); Basophils % 0.5 % (0.0-0.8); Eosinophils # 0.3 10*3/uL (0.0-0.87); Eosinophils % 3.2 % (0.00-10.9); Hematocrit 27.2 VOL% (42.0-52.0); Immature Granulocytes % 0.5 %; Immature Granulocytes Absolute 0.05 #; Lymphocytes # 0.9 10*3/uL (1.4-4.0); Lymphocytes % 8.6 % (21.2-54.2); Mean Corpuscular HGB Conc 33.1 GM/DL (32-36); Mean Corpuscular Volume 87.7 FL (87-102); Mean Platelet Volume 9.9 FL (9.6-12.0); Monocytes % 8.2 % (1.7-12.7); NRBC # 0.04 10*3/uL; Platelet Count 247 T/CUMM (130-400); Red Cell Distribution Width 15.5 % (9.3-17.3); White Blood Count 10.7 T/CUMM (4-12)
[2019-07-04 03:54] LABS: Albumin 1.6 G/DL (3.4-5.0); Bilirubin,Total 0.7 MG/DL (0.2-1.0); Osmolality,Calculated 271.7 MOS/KG (273-304); Total Protein 4.9 G/DL (6.4-8.3)
[2019-07-04] MEDS: DEXTROSE 10% 250 ML BAG IV PRN (08:55)
[2019-07-04] MEDS: INSULIN REGULAR 100 UNIT/ML SUBCUT SCH ×4 (09:02→20:46)
[2019-07-04] MEDS: ASPIRIN EC 81 MG TABLET PO SCH (09:58)
[2019-07-04] MEDS: MONTELUKAST 10 MG TABLET PO SCH (09:58)
[2019-07-04] MEDS: CYANOCOBALAMIN 500 MCG TABLET PO SCH ×2 (09:58→20:47)
[2019-07-04] MEDS: PANTOPRAZOLE 40 MG TABLET PO SCH ×2 (09:58→20:47)
[2019-07-04] MEDS: SELENIUM 200 MCG TABLET PO SCH ×2 (09:58→20:47)
[2019-07-04] MEDS: OMEGA 3 ACID ETHYL ESTERS 1 GM CAPSULE PO SCH (10:00)
[2019-07-04] MEDS: FENOFIBRATE 145 MG TABLET PO SCH (10:00)
[2019-07-04] MEDS: MAGNESIUM OXIDE 400 MG TABLET PO SCH (10:00)
[2019-07-04] MEDS: CALCIUM (CARBONATE) 500 MG TABLET PO SCH (10:00)
[2019-07-04] MEDS: VITAMIN E 400 UNIT CAPSULE PO SCH (10:02)
[2019-07-04] MEDS: LACTULOSE 20 GM/30 ML UDCUP PO SCH ×2 (10:04→20:47)
[2019-07-04] MEDS: ASCORBIC ACID 500 MG TABLET PO SCH ×2 (10:09→20:47)
[2019-07-04] MEDS: cefTRIAXone 1,000 MG in SYRINGE 1 EACH IV SCH (10:10)
[2019-07-04] MEDS: LINEZOLID INJ 600 MG in PREMIX 1 EACH IV SCH ×2 (10:13→20:47)
[2019-07-04] MEDS: HEPARIN DRIP 25,000 UNITS/500 ML PREMIX IV SCH (10:14)
[2019-07-04] MEDS: FLUTICASONE FUROATE VILANTEROL INH SCH (10:14)
[2019-07-04] MEDS: SODIUM CHLORIDE 0.9% 1,000 ML IV SCH (13:13)
[2019-07-04] MEDS: SODIUM BICARB INJ 50 MEQ in DEXTROSE 5% NACL 0.45% 1,000 ML IV SCH (13:18)
[2019-07-04] MEDS: DUTASTERIDE 0.5 MG CAPSULE PO SCH (20:47)
[2019-07-04] MEDS: ATORVASTATIN 40 MG TABLET PO SCH (20:47)
[2019-07-04] MEDS: INSULIN GLARGINE 100 UNIT/ML SUBCUT SCH (20:48)
[2019-07-05] MEDS: SODIUM BICARB INJ 50 MEQ in DEXTROSE 5% NACL 0.45% 1,000 ML IV SCH ×3 (03:39→17:12)
[2019-07-05 04:41] LABS: Basophils % 0.2 % (0.0-0.8); Eosinophils # 0.3 10*3/uL (0.0-0.87); Eosinophils % 2.7 % (0.00-10.9); Hematocrit 25.4 VOL% (42.0-52.0); Hemoglobin 8.4 GM/DL (14.0-18.0); Immature Granulocytes % 0.6 %; Immature Granulocytes Absolute 0.06 #; Lymphocytes # 0.7 10*3/uL (1.4-4.0); Lymphocytes % 7.4 % (21.2-54.2); Mean Corpuscular HGB Conc 33.1 GM/DL (32-36); Mean Corpuscular Volume 88.2 FL (87-102); Mean Platelet Volume 9.9 FL (9.6-12.0); Monocytes % 8.3 % (1.7-12.7); Neutrophils % 80.8 % (38.7-73.9); Platelet Count 260 T/CUMM (130-400); Red Blood Count 2.88 MC/CUMM (3.8-5.5); Red Cell Distribution Width 15.5 % (9.3-17.3); White Blood Count 10.1 T/CUMM (4-12)
[2019-07-05 04:59] LABS: INR 1.4; PT Patient Result 14.7 SECS (9.6-12.2)
[2019-07-05 05:10] LABS: Calcium 7.8 MG/DL (8.5-10.1); Osmolality,Calculated 274.8 MOS/KG (273-304)
[2019-07-05 05:14] LABS: Partial Thromboplastin Time 55.9 SECS (20.8-36.0)
[2019-07-05] MEDS ORDERED: PANTOPRAZOLE 40 MG VIAL IV ONE (08:20)
[2019-07-05] MEDS: INSULIN REGULAR 100 UNIT/ML SUBCUT SCH ×4 (08:21→21:46)
[2019-07-05] MEDS: FLUTICASONE FUROATE VILANTEROL INH SCH (08:23)
[2019-07-05] MEDS: LACTULOSE 20 GM/30 ML UDCUP PO SCH ×2 (08:23→21:52)
[2019-07-05] MEDS: OMEGA 3 ACID ETHYL ESTERS 1 GM CAPSULE PO SCH (08:23)
[2019-07-05] MEDS: ASPIRIN EC 81 MG TABLET PO SCH (08:23)
[2019-07-05] MEDS: ASCORBIC ACID 500 MG TABLET PO SCH ×2 (08:24→21:46)
[2019-07-05] MEDS: CYANOCOBALAMIN 500 MCG TABLET PO SCH ×2 (08:24→21:52)
[2019-07-05] MEDS: VITAMIN E 400 UNIT CAPSULE PO SCH (08:24)
[2019-07-05] MEDS: MONTELUKAST 10 MG TABLET PO SCH (08:24)
[2019-07-05] MEDS: CALCIUM (CARBONATE) 500 MG TABLET PO SCH (08:24)
[2019-07-05] MEDS: SELENIUM 200 MCG TABLET PO SCH ×2 (08:24→21:46)
[2019-07-05] MEDS: MAGNESIUM OXIDE 400 MG TABLET PO SCH (08:24)
[2019-07-05] MEDS: PANTOPRAZOLE 40 MG TABLET PO SCH ×2 (08:24→21:46)
[2019-07-05] MEDS: FENOFIBRATE 145 MG TABLET PO SCH (08:24)
[2019-07-05] MEDS: MORPHINE 4 MG/1 ML VIAL IV PRN (10:42)
[2019-07-05] MEDS: cefTRIAXone 1,000 MG in SYRINGE 1 EACH IV SCH (11:02)
[2019-07-05] MEDS: HEPARIN DRIP 25,000 UNITS/500 ML PREMIX IV SCH (11:03)
[2019-07-05] MEDS ORDERED: TOBRAMYCIN 1.2 GM VIAL TOP ONE ×2 (11:21→11:51)
[2019-07-05] MEDS ORDERED: VANCOMYCIN 1,000 MG VIAL ONE (11:21)
[2019-07-05] MEDS ORDERED: MIDAZOLAM 2 MG/2 ML VIAL ONE (13:36)
[2019-07-05] MEDS ORDERED: LIDOCAINE 2% 5 ML VIAL ONE (13:36)
[2019-07-05] MEDS ORDERED: fentaNYL 100 MCG/2 ML VIAL ONE (13:37)
[2019-07-05] MEDS ORDERED: ONDANSETRON 4 MG/2 ML VIAL ONE (13:38)
[2019-07-05] MEDS ORDERED: GLYCOPYRROLATE 0.4 MG/2 ML VIAL ONE ×2 (13:38)
[2019-07-05] MEDS ORDERED: PHENYLEPHRINE 1 MG/10 ML SYRINGE IV ONE (13:38)
[2019-07-05] MEDS ORDERED: ETOMIDATE 40 MG/20 ML VIAL IV ONE (13:38)
[2019-07-05] MEDS ORDERED: ROCURONIUM 100 MG/10 ML VIAL IV ONE (13:38)
[2019-07-05] MEDS ORDERED: ePHEDrine 50 MG/ML AMP ONE (13:38)
[2019-07-05] MEDS ORDERED: SODIUM CHLORIDE 0.9% 1,000 ML IV ONE (13:39)
[2019-07-05] MEDS ORDERED: NEOSTIGMINE 10 MG/10 ML VIAL ONE (13:39)
[2019-07-05] MEDS ORDERED: CALCIUM CHLORIDE 1,000 MG/10 ML VIAL IV ONE (13:40)
[2019-07-05] MEDS ORDERED: PHENYLEPHRINE DRIP 20 MG/250 ML PREMIX IV ONE (13:40)
[2019-07-05] MEDS ORDERED: SEVOFLURANE 1 UNIT/15 MINUTE INH ONE (13:40)
[2019-07-05] MEDS: LINEZOLID INJ 600 MG in PREMIX 1 EACH IV SCH ×2 (13:53→21:44)
[2019-07-05] MEDS: ATORVASTATIN 40 MG TABLET PO SCH (21:46)
[2019-07-05] MEDS: APIXABAN 2.5 MG TABLET PO SCH (21:46)
[2019-07-05] MEDS: DUTASTERIDE 0.5 MG CAPSULE PO SCH (21:46)
[2019-07-05] MEDS: INSULIN GLARGINE 100 UNIT/ML SUBCUT SCH ×2 (21:47→22:53)
[2019-07-06 04:28] LABS: Basophils % 0.4 % (0.0-0.8); Eosinophils # 0.5 10*3/uL (0.0-0.87); Eosinophils % 7.3 % (0.00-10.9); Immature Granulocytes % 0.4 %; Immature Granulocytes Absolute 0.03 #; Lymphocytes # 0.6 10*3/uL (1.4-4.0); Lymphocytes % 8.6 % (21.2-54.2); Mean Corpuscular Volume 91.6 FL (87-102); Mean Platelet Volume 9.5 FL (9.6-12.0); Monocytes % 7.5 % (1.7-12.7); Neutrophils % 75.8 % (38.7-73.9); Platelet Count 207 T/CUMM (130-400); Red Blood Count 2.73 MC/CUMM (3.8-5.5); Red Cell Distribution Width 15.4 % (9.3-17.3)
[2019-07-06 04:58] LABS: Albumin 1.2 G/DL (3.4-5.0); Calcium 7.4 MG/DL (8.5-10.1); Osmolality,Calculated 293.1 MOS/KG (273-304); Total Protein 4.2 G/DL (6.4-8.3)
[2019-07-06] MEDS: LACTULOSE 20 GM/30 ML UDCUP PO SCH ×2 (08:11→22:49)
[2019-07-06] MEDS: MONTELUKAST 10 MG TABLET PO SCH (08:12)
[2019-07-06] MEDS: PANTOPRAZOLE 40 MG TABLET PO SCH ×2 (08:12→22:49)
[2019-07-06] MEDS: ASCORBIC ACID 500 MG TABLET PO SCH ×2 (08:12→22:49)
[2019-07-06] MEDS: MAGNESIUM OXIDE 400 MG TABLET PO SCH (08:12)
[2019-07-06] MEDS: VITAMIN E 400 UNIT CAPSULE PO SCH (08:12)
[2019-07-06] MEDS: APIXABAN 2.5 MG TABLET PO SCH ×2 (08:12→22:49)
[2019-07-06] MEDS: SELENIUM 200 MCG TABLET PO SCH ×2 (08:12→22:49)
[2019-07-06] MEDS: OMEGA 3 ACID ETHYL ESTERS 1 GM CAPSULE PO SCH (08:12)
[2019-07-06] MEDS: CALCIUM (CARBONATE) 500 MG TABLET PO SCH (08:12)
[2019-07-06] MEDS: LINEZOLID INJ 600 MG in PREMIX 1 EACH IV SCH (08:12)
[2019-07-06] MEDS: FENOFIBRATE 145 MG TABLET PO SCH (08:12)
[2019-07-06] MEDS: CYANOCOBALAMIN 500 MCG TABLET PO SCH ×2 (08:12→22:49)
[2019-07-06] MEDS: ASPIRIN EC 81 MG TABLET PO SCH (08:13)
[2019-07-06] MEDS: INSULIN REGULAR 100 UNIT/ML SUBCUT SCH ×4 (08:27→22:50)
[2019-07-06] MEDS: FLUTICASONE FUROATE VILANTEROL INH SCH (08:32)
[2019-07-06] MEDS: cefTRIAXone 1,000 MG in SYRINGE 1 EACH IV SCH (09:44)
[2019-07-06] MEDS ORDERED: SODIUM CHLORIDE 0.9% 1,000 ML IV PRN ×2 (09:59→10:09)
[2019-07-06] MEDS: SODIUM CHLORIDE 0.9% 1,000 ML IV SCH ×2 (13:50→23:20)
[2019-07-06] MEDS: SODIUM BICARB INJ 50 MEQ in DEXTROSE 5% NACL 0.45% 1,000 ML IV SCH (14:04)
[2019-07-06 16:04] LABS: Hematocrit 31.3 VOL% (42.0-52.0); Hemoglobin 10.6 GM/DL (14.0-18.0)
[2019-07-06] MEDS: DEXTROSE 10% 250 ML BAG IV PRN (22:09)
[2019-07-06] MEDS: ATORVASTATIN 40 MG TABLET PO SCH (22:49)
[2019-07-06] MEDS: DUTASTERIDE 0.5 MG CAPSULE PO SCH (22:49)
[2019-07-06] MEDS: INSULIN GLARGINE 100 UNIT/ML SUBCUT SCH (22:49)
[2019-07-07] MEDS: LINEZOLID INJ 600 MG in PREMIX 1 EACH IV SCH ×2 (00:50→13:02)
[2019-07-07 05:12] LABS: Basophils % 0.2 % (0.0-0.8); Eosinophils # 0.6 10*3/uL (0.0-0.87); Eosinophils % 6.1 % (0.00-10.9); Hematocrit 31.2 VOL% (42.0-52.0); Hemoglobin 10.5 GM/DL (14.0-18.0); Immature Granulocytes % 0.4 %; Immature Granulocytes Absolute 0.04 #; Lymphocytes # 0.6 10*3/uL (1.4-4.0); Lymphocytes % 6.2 % (21.2-54.2); Mean Corpuscular HGB Conc 33.7 GM/DL (32-36); Mean Corpuscular Volume 88.1 FL (87-102); Mean Platelet Volume 9.7 FL (9.6-12.0); Monocytes % 6.5 % (1.7-12.7); Neutrophils % 80.6 % (38.7-73.9); Platelet Count 223 T/CUMM (130-400); Red Blood Count 3.54 MC/CUMM (3.8-5.5); White Blood Count 9.7 T/CUMM (4-12)
[2019-07-07 05:29] LABS: Calcium 8.7 MG/DL (8.5-10.1); Osmolality,Calculated 266.4 MOS/KG (273-304)
[2019-07-07] MEDS: SODIUM CHLORIDE 0.9% 1,000 ML IV SCH (06:57)
[2019-07-07] MEDS: INSULIN REGULAR 100 UNIT/ML SUBCUT SCH ×4 (08:59→22:53)
[2019-07-07] MEDS: ASPIRIN EC 81 MG TABLET PO SCH (09:00)
[2019-07-07] MEDS: MONTELUKAST 10 MG TABLET PO SCH (09:00)
[2019-07-07] MEDS: VITAMIN E 400 UNIT CAPSULE PO SCH (09:00)
[2019-07-07] MEDS: ASCORBIC ACID 500 MG TABLET PO SCH ×2 (09:00→20:44)
[2019-07-07] MEDS: OMEGA 3 ACID ETHYL ESTERS 1 GM CAPSULE PO SCH (09:00)
[2019-07-07] MEDS: LACTULOSE 20 GM/30 ML UDCUP PO SCH ×2 (09:00→22:35)
[2019-07-07] MEDS: PANTOPRAZOLE 40 MG TABLET PO SCH ×2 (09:00→20:43)
[2019-07-07] MEDS: FENOFIBRATE 145 MG TABLET PO SCH (09:00)
[2019-07-07] MEDS: APIXABAN 2.5 MG TABLET PO SCH ×2 (09:00→20:43)
[2019-07-07] MEDS: CYANOCOBALAMIN 500 MCG TABLET PO SCH ×2 (09:00→20:44)
[2019-07-07] MEDS: CALCIUM (CARBONATE) 500 MG TABLET PO SCH (09:00)
[2019-07-07] MEDS: SELENIUM 200 MCG TABLET PO SCH ×2 (09:00→20:44)
[2019-07-07] MEDS: MAGNESIUM OXIDE 400 MG TABLET PO SCH (09:00)
[2019-07-07] MEDS: FLUTICASONE FUROATE VILANTEROL INH SCH (09:58)
[2019-07-07] MEDS: traMADol 50 MG TABLET PO PRN (13:22)
[2019-07-07] MEDS: FUROSEMIDE 40 MG/4 ML VIAL IV SCH (17:21)
[2019-07-07] MEDS: ALBUMIN 25% 12.5 GM in PREMIX 1 EACH IV SCH (17:22)
[2019-07-07] MEDS: DUTASTERIDE 0.5 MG CAPSULE PO SCH (20:43)
[2019-07-07] MEDS: INSULIN GLARGINE 100 UNIT/ML SUBCUT SCH (22:52)
[2019-07-07] MEDS: ATORVASTATIN 40 MG TABLET PO SCH (22:55)
[2019-07-08] MEDS: ALBUMIN 25% 12.5 GM in PREMIX 1 EACH IV SCH ×4 (00:22→23:40)
[2019-07-08] MEDS: LINEZOLID INJ 600 MG in PREMIX 1 EACH IV SCH ×2 (02:21→12:42)
[2019-07-08 05:47] LABS: Basophils % 0.2 % (0.0-0.8); Eosinophils # 0.3 10*3/uL (0.0-0.87); Eosinophils % 2.9 % (0.00-10.9); Hematocrit 34.4 VOL% (42.0-52.0); Immature Granulocytes % 0.5 %; Immature Granulocytes Absolute 0.04 #; Lymphocytes # 0.5 10*3/uL (1.4-4.0); Mean Platelet Volume 9.4 FL (9.6-12.0); Monocytes % 6.8 % (1.7-12.7); Neutrophils % 83.6 % (38.7-73.9); Platelet Count 207 T/CUMM (130-400); Red Blood Count 3.78 MC/CUMM (3.8-5.5); Red Cell Distribution Width 15.9 % (9.3-17.3); White Blood Count 8.7 T/CUMM (4-12)
[2019-07-08 06:17] LABS: Albumin 2.1 G/DL (3.4-5.0); Bilirubin,Total 1.1 MG/DL (0.2-1.0); Calcium 9.7 MG/DL (8.5-10.1); Osmolality,Calculated 268.7 MOS/KG (273-304); Total Protein 5.6 G/DL (6.4-8.3)
[2019-07-08] MEDS: DEXTROSE 10% 250 ML BAG IV PRN (07:05)
[2019-07-08] MEDS: INSULIN REGULAR 100 UNIT/ML SUBCUT SCH ×4 (07:27→22:00)
[2019-07-08] MEDS: FUROSEMIDE 40 MG/4 ML VIAL IV SCH ×2 (09:34→17:03)
[2019-07-08] MEDS: PANTOPRAZOLE 40 MG TABLET PO SCH ×2 (09:35→21:53)
[2019-07-08] MEDS: MAGNESIUM OXIDE 400 MG TABLET PO SCH (09:35)
[2019-07-08] MEDS: APIXABAN 2.5 MG TABLET PO SCH ×2 (09:35→21:53)
[2019-07-08] MEDS: LACTULOSE 20 GM/30 ML UDCUP PO SCH ×2 (09:35→21:56)
[2019-07-08] MEDS: MONTELUKAST 10 MG TABLET PO SCH (09:35)
[2019-07-08] MEDS: VITAMIN E 400 UNIT CAPSULE PO SCH (09:35)
[2019-07-08] MEDS: ASCORBIC ACID 500 MG TABLET PO SCH ×2 (09:35→21:53)
[2019-07-08] MEDS: ASPIRIN EC 81 MG TABLET PO SCH (09:35)
[2019-07-08] MEDS: FLUTICASONE FUROATE VILANTEROL INH SCH (09:36)
[2019-07-08] MEDS: CALCIUM (CARBONATE) 500 MG TABLET PO SCH (09:36)
[2019-07-08] MEDS: CYANOCOBALAMIN 500 MCG TABLET PO SCH ×2 (09:36→21:53)
[2019-07-08] MEDS: OMEGA 3 ACID ETHYL ESTERS 1 GM CAPSULE PO SCH (09:36)
[2019-07-08] MEDS: SELENIUM 200 MCG TABLET PO SCH ×2 (09:36→21:53)
[2019-07-08] MEDS: FENOFIBRATE 145 MG TABLET PO SCH (09:36)
[2019-07-08] MEDS: SODIUM CHLORIDE 0.9% 1,000 ML IV SCH (12:28)
[2019-07-08] MEDS: DUTASTERIDE 0.5 MG CAPSULE PO SCH (21:52)
[2019-07-08] MEDS: ATORVASTATIN 40 MG TABLET PO SCH (21:53)
[2019-07-08] MEDS: INSULIN GLARGINE 100 UNIT/ML SUBCUT SCH (22:01)
[2019-07-09] MEDS: LINEZOLID INJ 600 MG in PREMIX 1 EACH IV SCH ×2 (00:35→11:50)
[2019-07-09 04:51] LABS: Basophils % 0.4 % (0.0-0.8); Eosinophils # 0.5 10*3/uL (0.0-0.87); Eosinophils % 6.6 % (0.00-10.9); Hematocrit 30.6 VOL% (42.0-52.0); Immature Granulocytes % 0.5 %; Immature Granulocytes Absolute 0.04 #; Lymphocytes # 0.7 10*3/uL (1.4-4.0); Lymphocytes % 8.5 % (21.2-54.2); Mean Corpuscular HGB Conc 32.7 GM/DL (32-36); Mean Platelet Volume 9.6 FL (9.6-12.0); Monocytes % 7.4 % (1.7-12.7); NRBC # 0.02 10*3/uL; Neutrophils % 76.6 % (38.7-73.9); Platelet Count 196 T/CUMM (130-400); Red Cell Distribution Width 16.2 % (9.3-17.3); White Blood Count 8.2 T/CUMM (4-12)
[2019-07-09 05:30] LABS: Calcium 9.8 MG/DL (8.5-10.1); Osmolality,Calculated 271.5 MOS/KG (273-304)
[2019-07-09] MEDS: INSULIN REGULAR 100 UNIT/ML SUBCUT SCH ×4 (08:01→21:32)
[2019-07-09] MEDS: ALBUMIN 25% 12.5 GM in PREMIX 1 EACH IV SCH (10:13)
[2019-07-09] MEDS: FUROSEMIDE 40 MG/4 ML VIAL IV SCH ×2 (10:23→17:02)
[2019-07-09] MEDS: LACTULOSE 20 GM/30 ML UDCUP PO SCH ×2 (10:23→21:31)
[2019-07-09] MEDS: OMEGA 3 ACID ETHYL ESTERS 1 GM CAPSULE PO SCH (10:23)
[2019-07-09] MEDS: FENOFIBRATE 145 MG TABLET PO SCH (10:24)
[2019-07-09] MEDS: APIXABAN 2.5 MG TABLET PO SCH ×2 (10:24→21:31)
[2019-07-09] MEDS: MONTELUKAST 10 MG TABLET PO SCH (10:24)
[2019-07-09] MEDS: SELENIUM 200 MCG TABLET PO SCH ×2 (10:24→21:31)
[2019-07-09] MEDS: VITAMIN E 400 UNIT CAPSULE PO SCH (10:24)
[2019-07-09] MEDS: CYANOCOBALAMIN 500 MCG TABLET PO SCH ×2 (10:24→21:31)
[2019-07-09] MEDS: ASPIRIN EC 81 MG TABLET PO SCH (10:24)
[2019-07-09] MEDS: CALCIUM (CARBONATE) 500 MG TABLET PO SCH (10:25)
[2019-07-09] MEDS: ASCORBIC ACID 500 MG TABLET PO SCH ×2 (10:25→21:31)
[2019-07-09] MEDS: MAGNESIUM OXIDE 400 MG TABLET PO SCH (10:33)
[2019-07-09] MEDS: PANTOPRAZOLE 40 MG TABLET PO SCH ×2 (10:33→21:31)
[2019-07-09] MEDS: INSULIN GLARGINE 100 UNIT/ML SUBCUT SCH (10:36)
[2019-07-09] MEDS: FLUTICASONE FUROATE VILANTEROL INH SCH (10:37)
[2019-07-09] MEDS: ATORVASTATIN 40 MG TABLET PO SCH (21:31)
[2019-07-09] MEDS: DUTASTERIDE 0.5 MG CAPSULE PO SCH (21:31)
[2019-07-10] MEDS: LINEZOLID INJ 600 MG in PREMIX 1 EACH IV SCH ×2 (00:22→12:17)
[2019-07-10 06:06] LABS: Basophils % 0.3 % (0.0-0.8); Eosinophils # 0.1 10*3/uL (0.0-0.87); Eosinophils % 1.8 % (0.00-10.9); Hematocrit 32.2 VOL% (42.0-52.0); Hemoglobin 10.7 GM/DL (14.0-18.0); Immature Granulocytes % 0.6 %; Immature Granulocytes Absolute 0.05 #; Lymphocytes # 0.6 10*3/uL (1.4-4.0); Lymphocytes % 7.3 % (21.2-54.2); Mean Corpuscular HGB Conc 33.2 GM/DL (32-36); Mean Corpuscular Volume 89.4 FL (87-102); Mean Platelet Volume 10.1 FL (9.6-12.0); Monocytes % 7.3 % (1.7-12.7); Neutrophils % 82.7 % (38.7-73.9); Platelet Count 211 T/CUMM (130-400); Red Cell Distribution Width 15.9 % (9.3-17.3); White Blood Count 7.8 T/CUMM (4-12)
[2019-07-10 06:44] LABS: Calcium 10.3 MG/DL (8.5-10.1); Osmolality,Calculated 270.4 MOS/KG (273-304)
[2019-07-10] MEDS: INSULIN REGULAR 100 UNIT/ML SUBCUT SCH ×4 (07:17→20:44)
[2019-07-10] MEDS: DEXTROSE 10% 250 ML BAG IV PRN (07:18)
[2019-07-10] MEDS: MAGNESIUM OXIDE 400 MG TABLET PO SCH (08:43)
[2019-07-10] MEDS: FENOFIBRATE 145 MG TABLET PO SCH (08:43)
[2019-07-10] MEDS: VITAMIN E 400 UNIT CAPSULE PO SCH (08:43)
[2019-07-10] MEDS: OMEGA 3 ACID ETHYL ESTERS 1 GM CAPSULE PO SCH (08:45)
[2019-07-10] MEDS: ASPIRIN EC 81 MG TABLET PO SCH (08:46)
[2019-07-10] MEDS: APIXABAN 2.5 MG TABLET PO SCH ×2 (08:46→20:45)
[2019-07-10] MEDS: CALCIUM (CARBONATE) 500 MG TABLET PO SCH (08:46)
[2019-07-10] MEDS: SELENIUM 200 MCG TABLET PO SCH ×2 (08:48→20:45)
[2019-07-10] MEDS: MONTELUKAST 10 MG TABLET PO SCH (08:48)
[2019-07-10] MEDS: ASCORBIC ACID 500 MG TABLET PO SCH ×2 (08:48→20:45)
[2019-07-10] MEDS: PANTOPRAZOLE 40 MG TABLET PO SCH ×2 (08:49→20:45)
[2019-07-10] MEDS: CYANOCOBALAMIN 500 MCG TABLET PO SCH ×2 (08:49→20:45)
[2019-07-10] MEDS: INSULIN GLARGINE 100 UNIT/ML SUBCUT SCH (08:50)
[2019-07-10] MEDS: FUROSEMIDE 40 MG/4 ML VIAL IV SCH ×2 (08:50→16:32)
[2019-07-10] MEDS: FLUTICASONE FUROATE VILANTEROL INH SCH (08:53)
[2019-07-10] MEDS: LACTULOSE 20 GM/30 ML UDCUP PO SCH ×2 (08:53→20:44)
[2019-07-10] MEDS: traMADol 50 MG TABLET PO PRN (10:26)
[2019-07-10] MEDS: DUTASTERIDE 0.5 MG CAPSULE PO SCH (20:45)
[2019-07-10] MEDS: ATORVASTATIN 40 MG TABLET PO SCH (20:45)
[2019-07-11] MEDS: LINEZOLID INJ 600 MG in PREMIX 1 EACH IV SCH ×3 (00:45→23:57)
[2019-07-11 04:42] LABS: Basophils % 0.5 % (0.0-0.8); Eosinophils # 0.4 10*3/uL (0.0-0.87); Eosinophils % 4.3 % (0.00-10.9); Hematocrit 31.1 VOL% (42.0-52.0); Hemoglobin 10.4 GM/DL (14.0-18.0); Immature Granulocytes % 0.3 %; Immature Granulocytes Absolute 0.03 #; Lymphocytes # 0.7 10*3/uL (1.4-4.0); Lymphocytes % 7.6 % (21.2-54.2); Mean Corpuscular HGB Conc 33.4 GM/DL (32-36); Mean Corpuscular Volume 89.1 FL (87-102); Mean Platelet Volume 10.2 FL (9.6-12.0); Monocytes % 7.6 % (1.7-12.7); Neutrophils % 79.7 % (38.7-73.9); Platelet Count 196 T/CUMM (130-400); Red Blood Count 3.49 MC/CUMM (3.8-5.5); Red Cell Distribution Width 16.1 % (9.3-17.3); White Blood Count 8.8 T/CUMM (4-12)
[2019-07-11 04:50] LABS: Calcium 9.9 MG/DL (8.5-10.1); Osmolality,Calculated 273.7 MOS/KG (273-304)
[2019-07-11] MEDS: INSULIN REGULAR 100 UNIT/ML SUBCUT SCH ×4 (08:39→21:20)
[2019-07-11] MEDS: FUROSEMIDE 40 MG/4 ML VIAL IV SCH ×2 (08:39→17:17)
[2019-07-11] MEDS: MAGNESIUM OXIDE 400 MG TABLET PO SCH (08:40)
[2019-07-11] MEDS: FENOFIBRATE 145 MG TABLET PO SCH (08:40)
[2019-07-11] MEDS: ASPIRIN EC 81 MG TABLET PO SCH (08:40)
[2019-07-11] MEDS: ASCORBIC ACID 500 MG TABLET PO SCH ×2 (08:40→21:20)
[2019-07-11] MEDS: CYANOCOBALAMIN 500 MCG TABLET PO SCH ×2 (08:40→21:20)
[2019-07-11] MEDS: VITAMIN E 400 UNIT CAPSULE PO SCH (08:40)
[2019-07-11] MEDS: PANTOPRAZOLE 40 MG TABLET PO SCH ×2 (08:40→21:20)
[2019-07-11] MEDS: CALCIUM (CARBONATE) 500 MG TABLET PO SCH (08:41)
[2019-07-11] MEDS: MONTELUKAST 10 MG TABLET PO SCH (08:41)
[2019-07-11] MEDS: OMEGA 3 ACID ETHYL ESTERS 1 GM CAPSULE PO SCH (08:41)
[2019-07-11] MEDS: APIXABAN 2.5 MG TABLET PO SCH ×2 (08:41→21:20)
[2019-07-11] MEDS: LACTULOSE 20 GM/30 ML UDCUP PO SCH ×2 (08:41→21:19)
[2019-07-11] MEDS: SELENIUM 200 MCG TABLET PO SCH ×2 (08:41→21:20)
[2019-07-11] MEDS: INSULIN GLARGINE 100 UNIT/ML SUBCUT SCH (09:18)
[2019-07-11] MEDS: FLUTICASONE FUROATE VILANTEROL INH SCH (09:21)
[2019-07-11] MEDS: DUTASTERIDE 0.5 MG CAPSULE PO SCH (21:20)
[2019-07-11] MEDS: ATORVASTATIN 40 MG TABLET PO SCH (21:20)
[2019-07-12 07:10] LABS: Basophils % 0.5 % (0.0-0.8); Eosinophils # 0.4 10*3/uL (0.0-0.87); Eosinophils % 4.3 % (0.00-10.9); Hematocrit 31.1 VOL% (42.0-52.0); Hemoglobin 10.2 GM/DL (14.0-18.0); Immature Granulocytes % 0.3 %; Immature Granulocytes Absolute 0.03 #; Lymphocytes # 0.6 10*3/uL (1.4-4.0); Lymphocytes % 6.8 % (21.2-54.2); Mean Corpuscular HGB Conc 32.8 GM/DL (32-36); Mean Corpuscular Volume 89.1 FL (87-102); Mean Platelet Volume 9.5 FL (9.6-12.0); Monocytes % 6.5 % (1.7-12.7); Neutrophils % 81.6 % (38.7-73.9); Platelet Count 150 T/CUMM (130-400); Red Blood Count 3.49 MC/CUMM (3.8-5.5); White Blood Count 8.9 T/CUMM (4-12)
[2019-07-12 07:34] LABS: Calcium 9.9 MG/DL (8.5-10.1); Osmolality,Calculated 280.7 MOS/KG (273-304)
[2019-07-12] MEDS: LACTULOSE 20 GM/30 ML UDCUP PO SCH ×2 (09:16→22:53)
[2019-07-12] MEDS: INSULIN REGULAR 100 UNIT/ML SUBCUT SCH ×4 (09:17→22:51)
[2019-07-12] MEDS: MAGNESIUM OXIDE 400 MG TABLET PO SCH (09:17)
[2019-07-12] MEDS: MONTELUKAST 10 MG TABLET PO SCH (09:17)
[2019-07-12] MEDS: APIXABAN 2.5 MG TABLET PO SCH ×2 (09:18→22:53)
[2019-07-12] MEDS: ASCORBIC ACID 500 MG TABLET PO SCH ×2 (09:18→22:53)
[2019-07-12] MEDS: FENOFIBRATE 145 MG TABLET PO SCH (09:18)
[2019-07-12] MEDS: PANTOPRAZOLE 40 MG TABLET PO SCH ×2 (09:18→22:53)
[2019-07-12] MEDS: CYANOCOBALAMIN 500 MCG TABLET PO SCH ×2 (09:18→22:52)
[2019-07-12] MEDS: CALCIUM (CARBONATE) 500 MG TABLET PO SCH (09:18)
[2019-07-12] MEDS: VITAMIN E 400 UNIT CAPSULE PO SCH (09:18)
[2019-07-12] MEDS: SELENIUM 200 MCG TABLET PO SCH ×2 (09:18→22:53)
[2019-07-12] MEDS: FUROSEMIDE 40 MG/4 ML VIAL IV SCH (09:18)
[2019-07-12] MEDS: OMEGA 3 ACID ETHYL ESTERS 1 GM CAPSULE PO SCH (09:18)
[2019-07-12] MEDS: ASPIRIN EC 81 MG TABLET PO SCH (09:18)
[2019-07-12] MEDS: FLUTICASONE FUROATE VILANTEROL INH SCH (09:19)
[2019-07-12] MEDS: INSULIN GLARGINE 100 UNIT/ML SUBCUT SCH (09:19)
[2019-07-12] MEDS: LINEZOLID INJ 600 MG in PREMIX 1 EACH IV SCH ×2 (12:10→23:06)
[2019-07-12] MEDS: NYSTATIN CREAM 15 GM TUBE TOP SCH (22:51)
[2019-07-12] MEDS: ATORVASTATIN 40 MG TABLET PO SCH (22:52)
[2019-07-12] MEDS: TAMSULOSIN 0.4 MG CAPSULE PO SCH (22:53)
[2019-07-12] MEDS: DUTASTERIDE 0.5 MG CAPSULE PO SCH (22:53)
[2019-07-13 06:25] LABS: Basophils % 0.4 % (0.0-0.8); Eosinophils # 0.3 10*3/uL (0.0-0.87); Eosinophils % 3.7 % (0.00-10.9); Hematocrit 29.3 VOL% (42.0-52.0); Hemoglobin 9.8 GM/DL (14.0-18.0); Immature Granulocytes % 0.5 %; Immature Granulocytes Absolute 0.04 #; Lymphocytes # 0.6 10*3/uL (1.4-4.0); Lymphocytes % 6.9 % (21.2-54.2); Mean Corpuscular HGB Conc 33.4 GM/DL (32-36); Mean Corpuscular Volume 87.7 FL (87-102); Mean Platelet Volume 9.6 FL (9.6-12.0); Monocytes % 6.4 % (1.7-12.7); Neutrophils % 82.1 % (38.7-73.9); Platelet Count 130 T/CUMM (130-400); Red Blood Count 3.34 MC/CUMM (3.8-5.5); Red Cell Distribution Width 15.9 % (9.3-17.3); White Blood Count 8.3 T/CUMM (4-12)
[2019-07-13 06:42] LABS: Calcium 9.5 MG/DL (8.5-10.1); Osmolality,Calculated 272.5 MOS/KG (273-304)
[2019-07-13] MEDS: INSULIN REGULAR 100 UNIT/ML SUBCUT SCH ×2 (08:08→11:51)
[2019-07-13] MEDS: VITAMIN E 400 UNIT CAPSULE PO SCH (08:37)
[2019-07-13] MEDS: SELENIUM 200 MCG TABLET PO SCH (08:37)
[2019-07-13] MEDS: ASCORBIC ACID 500 MG TABLET PO SCH (08:37)
[2019-07-13] MEDS: CYANOCOBALAMIN 500 MCG TABLET PO SCH (08:38)
[2019-07-13] MEDS: APIXABAN 2.5 MG TABLET PO SCH (08:38)
[2019-07-13] MEDS: CALCIUM (CARBONATE) 500 MG TABLET PO SCH (08:38)
[2019-07-13] MEDS: OMEGA 3 ACID ETHYL ESTERS 1 GM CAPSULE PO SCH (08:38)
[2019-07-13] MEDS: ASPIRIN EC 81 MG TABLET PO SCH (08:38)
[2019-07-13] MEDS: MONTELUKAST 10 MG TABLET PO SCH (08:39)
[2019-07-13] MEDS: PANTOPRAZOLE 40 MG TABLET PO SCH (08:39)
[2019-07-13] MEDS: TAMSULOSIN 0.4 MG CAPSULE PO SCH (08:39)
[2019-07-13] MEDS: MAGNESIUM OXIDE 400 MG TABLET PO SCH (08:39)
[2019-07-13] MEDS: FENOFIBRATE 145 MG TABLET PO SCH (08:39)
[2019-07-13] MEDS: INSULIN GLARGINE 100 UNIT/ML SUBCUT SCH (08:40)
[2019-07-13] MEDS: LACTULOSE 20 GM/30 ML UDCUP PO SCH (08:41)
[2019-07-13] MEDS: FLUTICASONE FUROATE VILANTEROL INH SCH (08:44)
[2019-07-13] MEDS: NYSTATIN CREAM 15 GM TUBE TOP SCH (08:44)
[2019-07-13] MEDS ORDERED: FUROSEMIDE 40 MG TABLET PO SCH (09:00)
[2019-07-13 11:19] VITALS: BP 92/42
[2019-07-13] MEDS: LINEZOLID INJ 600 MG in PREMIX 1 EACH IV SCH (11:52)
== END 2019-07-13 14:30 | DRG 856 ==
LOC: N.OR 05:39 → N.SDSINP 05:40 → N.3E 13:50 → N.ICU 07-01 10:43 → N.3E 07-06 13:48
PROVIDERS: ADMIT Orthopaedic Surgery; ATTEND Orthopaedic Surgery

== ENCOUNTER 2019-07-26 09:40 | Inpatient (IN) ==
[2019-07-26] MEDS ORDERED: ONDANSETRON 4 MG/2 ML VIAL IV STA (10:09)
[2019-07-26] MEDS ORDERED: PANTOPRAZOLE 40 MG VIAL IV STA (10:09)
[2019-07-26 10:26] LABS: Albumin 3.3 G/DL (3.4-5.0); Bilirubin,Total 0.9 MG/DL (0.2-1.0); Osmolality,Calculated 270.8 MOS/KG (273-304); Total Protein 6.3 G/DL (6.4-8.3)
[2019-07-26 10:27] LABS: Basophils % 0.5 % (0.0-0.8); Eosinophils # 0.1 10*3/uL (0.0-0.87); Eosinophils % 2.1 % (0.00-10.9); Hematocrit 22.6 VOL% (42.0-52.0); Hemoglobin 7.5 GM/DL (14.0-18.0); Immature Granulocytes % 0.5 %; Immature Granulocytes Absolute 0.02 #; Lymphocytes # 0.4 10*3/uL (1.4-4.0); Lymphocytes % 9.9 % (21.2-54.2); Mean Corpuscular HGB Conc 33.2 GM/DL (32-36); Mean Corpuscular Volume 87.9 FL (87-102); Mean Platelet Volume 12.8 FL (9.6-12.0); Monocytes % 5.7 % (1.7-12.7); Neutrophils % 81.3 % (38.7-73.9); Red Blood Count 2.57 MC/CUMM (3.8-5.5); Red Cell Distribution Width 15.9 % (9.3-17.3); White Blood Count 4.2 T/CUMM (4-12)
[2019-07-26 10:30] LABS: Platelet Count 78 T/CUMM (130-400)
[2019-07-26 10:36] LABS: INR 1.5
[2019-07-26 10:47] LABS: Hypochromasia 1+; Microcytosis 1+; Ovalocytes Slight
[2019-07-26 10:48] LABS: Platelet Estimate Decreased
[2019-07-26 10:58] LABS: Partial Thromboplastin Time 45.7 SECS (20.8-36.0)
[2019-07-26] MEDS ORDERED: SODIUM CHLORIDE 0.9% 1,000 ML IV SCH (11:30)
[2019-07-26] MEDS ORDERED: MORPHINE 4 MG/1 ML VIAL IV PRN (11:49)
[2019-07-26] MEDS ORDERED: SODIUM CHLORIDE 0.9% 1,000 ML IV PRN (11:52)
[2019-07-26 12:45] LABS: Basophils % 0.3 % (0.0-0.8); Eosinophils # 0.1 10*3/uL (0.0-0.87); Hematocrit 22.2 VOL% (42.0-52.0); Hemoglobin 7.3 GM/DL (14.0-18.0); Immature Granulocytes % 0.3 %; Immature Granulocytes Absolute 0.01 #; Lymphocytes # 0.4 10*3/uL (1.4-4.0); Lymphocytes % 11.9 % (21.2-54.2); Mean Corpuscular HGB Conc 32.9 GM/DL (32-36); Mean Corpuscular Volume 87.7 FL (87-102); Mean Platelet Volume 12.6 FL (9.6-12.0); Monocytes % 6.7 % (1.7-12.7); Neutrophils % 77.8 % (38.7-73.9); Platelet Count 66 T/CUMM (130-400); Red Blood Count 2.53 MC/CUMM (3.8-5.5); Red Cell Distribution Width 15.9 % (9.3-17.3); White Blood Count 3.7 T/CUMM (4-12)
[2019-07-26 13:01] LABS: Anisocytosis 1+; Hypochromasia 1+; Microcytosis 1+
[2019-07-26 13:02] LABS: Ovalocytes Slight; Platelet Estimate Decreased
[2019-07-26 13:03] LABS: Vitamin B12 1547 PG/ML (211-911)
[2019-07-26 13:48] LABS: Sedimentation Rate-Westergren 21 MM/HR (0-20)
[2019-07-26] MEDS ORDERED: LACTULOSE 20 GM/30 ML UDCUP PO PRN (13:53)
[2019-07-26] MEDS ORDERED: NON-FORMULARY MEDICATION (Glucagon Hcl [Glucagon (Hcl) Emergency Kit] 1 MG) IM PRN (13:53)
[2019-07-26] MEDS ORDERED: BISACODYL 10 MG SUPP RECTAL PRN (13:53)
[2019-07-26] MEDS ORDERED: DOCUSATE SODIUM 100 MG CAPSULE PO PRN (13:53)
[2019-07-26] MEDS ORDERED: ALUMINUM/MAGNES/SIMETH MAX STR 30 ML UDCUP PO PRN (13:53)
[2019-07-26] MEDS ORDERED: ACETAMINOPHEN 325 MG TABLET PO PRN (13:53)
[2019-07-26] MEDS ORDERED: ONDANSETRON 4 MG TABLET PO PRN (13:53)
[2019-07-26] MEDS ORDERED: NON-FORMULARY MEDICATION (Ondansetron Hcl 4 MG) IM PRN (13:53)
[2019-07-26] MEDS ORDERED: POLYETHYLENE GLYCOL POWDER 255 GM BOTTLE PO PRN (13:53)
[2019-07-26 14:43] LABS: % Iron Saturation 95.3 % (18-50)
[2019-07-26] MEDS ORDERED: VANCOMYCIN INJ 1,250 MG in SODIUM CHLORIDE 0.9% 250 ML IV PRN (14:43)
[2019-07-26] MEDS: SODIUM CHLORIDE 0.9% 1,000 ML IV SCH ×2 (15:28→23:02)
[2019-07-26] MEDS ORDERED: GLUCAGON 1 MG VIAL IM PRN (16:10)
[2019-07-26] MEDS ORDERED: DEXTROSE 50% 25 GM/50 ML VIAL IV PRN (16:10)
[2019-07-26] MEDS ORDERED: VANCOMYCIN INJ 1,250 MG in SODIUM CHLORIDE 0.9% 250 ML IV ONE (17:00)
[2019-07-26] MEDS ORDERED: NYSTATIN 500,000 UNIT/5 ML UDCUP PO SCH (17:00)
[2019-07-26] MEDS: INSULIN REGULAR 100 UNIT/ML SUBCUT SCH ×2 (17:23→22:59)
[2019-07-26 17:59] LABS: Apearance,Urine Slightly Hazy (Clear); Bacteria,Urine Many /HPF (Few); Bilirubin,Urine Negative (Negative); Blood, Urine Negative (Negative); Glucose,Urine (UA) Negative (Negative); Hyaline Casts,Urine 1 /LPF (0-3); Ketones,Urine Negative (Negative); Mucus,Urine Occasional /LPF (Occasional); Nitrite,Urine Negative (Negative); Protein,Urine Negative; RBC,Urine 2 /HPF (0-4); Urine Color Yellow (Yellow); Urine Urobilinogen < 2.0 EU/DL (0.2-1.0); WBC,Urine 5 /HPF (0-6)
[2019-07-26 20:23] LABS: Hematocrit 28.1 VOL% (42.0-52.0); Hemoglobin 9.1 GM/DL (14.0-18.0)
[2019-07-26] MEDS ORDERED: NYSTATIN TOP SCH (21:00)
[2019-07-26] MEDS ORDERED: [UNRECOGNIZED DRUG - OTHER] TOP SCH (21:00)
[2019-07-26] MEDS ORDERED: NON-FORMULARY MEDICATION (Selenium 200 MCG) PO SCH (21:00)
[2019-07-26] MEDS: ATORVASTATIN 20 MG TABLET PO SCH (23:00)
[2019-07-26] MEDS: DUTASTERIDE 0.5 MG CAPSULE PO SCH (23:00)
[2019-07-26] MEDS: CYANOCOBALAMIN 500 MCG TABLET PO SCH (23:00)
[2019-07-26] MEDS: TAMSULOSIN 0.4 MG CAPSULE PO SCH (23:00)
[2019-07-26] MEDS: ASCORBIC ACID 500 MG TABLET PO SCH (23:01)
[2019-07-27 04:45] LABS: Basophils % 0.6 % (0.0-0.8); Eosinophils # 0.1 10*3/uL (0.0-0.87); Eosinophils % 2.6 % (0.00-10.9); Hematocrit 27.9 VOL% (42.0-52.0); Hemoglobin 9.2 GM/DL (14.0-18.0); Immature Granulocytes % 0.3 %; Immature Granulocytes Absolute 0.01 #; Lymphocytes # 0.5 10*3/uL (1.4-4.0); Lymphocytes % 13.1 % (21.2-54.2); Mean Corpuscular Volume 87.5 FL (87-102); Mean Platelet Volume 12.6 FL (9.6-12.0); Neutrophils % 75.4 % (38.7-73.9); Platelet Count 67 T/CUMM (130-400); Red Blood Count 3.19 MC/CUMM (3.8-5.5); Red Cell Distribution Width 15.6 % (9.3-17.3); White Blood Count 3.5 T/CUMM (4-12)
[2019-07-27 05:05] LABS: Eosinophils 3 % (0-10); Hypochromasia 1+; Lymphocytes 12 % (20-55); Microcytosis 1+; Ovalocytes Slight; Platelet Estimate Decreased; Segmented Neutrophils 80 % (50-85); Total Cells Counted 100
[2019-07-27 05:25] LABS: Albumin 3.3 G/DL (3.4-5.0); Bilirubin,Total 1.6 MG/DL (0.2-1.0); Calcium 8.8 MG/DL (8.5-10.1); Osmolality,Calculated 282.1 MOS/KG (273-304)
[2019-07-27] MEDS: PANTOPRAZOLE 40 MG TABLET PO SCH ×2 (07:32→22:47)
[2019-07-27] MEDS ORDERED: ISOSORBIDE MONONITRATE 30 MG TABLET PO SCH (09:00)
[2019-07-27] MEDS ORDERED: NON-FORMULARY MEDICATION (Vitamin E 400 UNIT) PO SCH (09:00)
[2019-07-27] MEDS ORDERED: ASPIRIN EC 81 MG TABLET PO SCH (09:00)
[2019-07-27] MEDS: INSULIN REGULAR 100 UNIT/ML SUBCUT SCH ×4 (09:16→22:42)
[2019-07-27] MEDS: INSULIN GLARGINE 100 UNIT/ML SUBCUT SCH (09:16)
[2019-07-27 09:19] LABS: Hemoglobin A1 (Alkaline) 97.3 % (96.5-98.5); Hemoglobin A2 (Alkaline) 2.7 % (1.5-3.5)
[2019-07-27] MEDS: SODIUM CHLORIDE 0.9% 1,000 ML IV SCH ×2 (09:30→22:31)
[2019-07-27] MEDS ORDERED: DEXTROSE 50% 25 GM/50 ML VIAL IV PRN (13:11)
[2019-07-27] MEDS ORDERED: GLUCAGON 1 MG VIAL IM PRN (13:11)
[2019-07-27] MEDS: FENOFIBRATE 145 MG TABLET PO SCH (14:50)
[2019-07-27] MEDS: TAMSULOSIN 0.4 MG CAPSULE PO SCH ×2 (14:50→22:33)
[2019-07-27] MEDS: MAGNESIUM OXIDE 400 MG TABLET PO SCH (14:50)
[2019-07-27] MEDS: MONTELUKAST 10 MG TABLET PO SCH (14:50)
[2019-07-27] MEDS: CALCIUM (CARBONATE) 500 MG TABLET PO SCH (14:50)
[2019-07-27] MEDS: ASCORBIC ACID 500 MG TABLET PO SCH ×2 (14:50→22:33)
[2019-07-27] MEDS: OMEGA 3 ACID ETHYL ESTERS 1 GM CAPSULE PO SCH (14:50)
[2019-07-27] MEDS: CYANOCOBALAMIN 500 MCG TABLET PO SCH ×2 (14:50→22:33)
[2019-07-27] MEDS: ACYCLOVIR 5% OINT 15 GM TUBE TOP SCH ×3 (14:51→22:42)
[2019-07-27] MEDS ORDERED: FUROSEMIDE 40 MG/4 ML VIAL IV ONE (15:24)
[2019-07-27] MEDS: ATORVASTATIN 20 MG TABLET PO SCH (22:33)
[2019-07-27] MEDS: DUTASTERIDE 0.5 MG CAPSULE PO SCH (22:41)
[2019-07-28] MEDS ORDERED: DEXTROSE 10% 250 ML IV ONE ×2 (05:42→11:09)
[2019-07-28 05:52] LABS: Basophils % 0.3 % (0.0-0.8); Eosinophils # 0.2 10*3/uL (0.0-0.87); Eosinophils % 2.4 % (0.00-10.9); Hematocrit 27.4 VOL% (42.0-52.0); Hemoglobin 9.2 GM/DL (14.0-18.0); Immature Granulocytes % 0.3 %; Immature Granulocytes Absolute 0.02 #; Lymphocytes # 0.7 10*3/uL (1.4-4.0); Lymphocytes % 8.4 % (21.2-54.2); Mean Corpuscular HGB Conc 33.6 GM/DL (32-36); Mean Corpuscular Volume 87.3 FL (87-102); Mean Platelet Volume 12.5 FL (9.6-12.0); Neutrophils % 78.6 % (38.7-73.9); Platelet Count 82 T/CUMM (130-400); Red Blood Count 3.14 MC/CUMM (3.8-5.5); Red Cell Distribution Width 16.1 % (9.3-17.3); White Blood Count 7.9 T/CUMM (4-12)
[2019-07-28] MEDS: ACYCLOVIR 5% OINT 15 GM TUBE TOP SCH ×5 (05:52→21:06)
[2019-07-28 06:13] LABS: Eosinophils 5 % (0-10); Hypochromasia 1+; Lymphocytes 5 % (20-55); Platelet Estimate Decreased; Segmented Neutrophils 81 % (50-85); Total Cells Counted 100
[2019-07-28 06:14] LABS: Microcytosis 1+
[2019-07-28 06:18] LABS: Calcium 8.8 MG/DL (8.5-10.1); Osmolality,Calculated 283.4 MOS/KG (273-304)
[2019-07-28] MEDS: PANTOPRAZOLE 40 MG TABLET PO SCH (06:36)
[2019-07-28] MEDS: INSULIN REGULAR 100 UNIT/ML SUBCUT SCH ×4 (07:44→21:05)
[2019-07-28] MEDS ORDERED: LACTATED RINGERS 1,000 ML IV SCH (08:00)
[2019-07-28] MEDS: INSULIN GLARGINE 100 UNIT/ML SUBCUT SCH (08:57)
[2019-07-28] MEDS: DEXTROSE 5% NACL 0.9% 1,000 ML IV SCH (08:57)
[2019-07-28] MEDS ORDERED: LIDOCAINE 2% 5 ML VIAL ONE (09:00)
[2019-07-28] MEDS ORDERED: PHENYLEPHRINE 1 MG/10 ML SYRINGE IV ONE (09:00)
[2019-07-28] MEDS ORDERED: propofoL 200 MG/20 ML VIAL IV ONE (09:00)
[2019-07-28] MEDS ORDERED: ETOMIDATE 20 MG/10 ML VIAL IV ONE (09:00)
[2019-07-28] MEDS ORDERED: DEXTROSE 10% 250 ML BAG IV PRN (11:38)
[2019-07-28] MEDS ORDERED: DEXTROSE 10% 250 ML IV SCH (12:00)
[2019-07-28] MEDS: ASCORBIC ACID 500 MG TABLET PO SCH ×2 (12:42→21:06)
[2019-07-28] MEDS: CYANOCOBALAMIN 500 MCG TABLET PO SCH ×2 (12:42→21:06)
[2019-07-28] MEDS: OMEGA 3 ACID ETHYL ESTERS 1 GM CAPSULE PO SCH (12:42)
[2019-07-28] MEDS: MONTELUKAST 10 MG TABLET PO SCH (12:42)
[2019-07-28] MEDS: MAGNESIUM OXIDE 400 MG TABLET PO SCH (12:42)
[2019-07-28] MEDS: TAMSULOSIN 0.4 MG CAPSULE PO SCH ×2 (12:42→21:06)
[2019-07-28] MEDS: CALCIUM (CARBONATE) 500 MG TABLET PO SCH (12:42)
[2019-07-28] MEDS: FENOFIBRATE 145 MG TABLET PO SCH (12:43)
[2019-07-28] MEDS ORDERED: VANCOMYCIN INJ 1,250 MG in SODIUM CHLORIDE 0.9% 250 ML IV ONE (21:00)
[2019-07-28] MEDS: ATORVASTATIN 20 MG TABLET PO SCH (21:06)
[2019-07-28] MEDS: ZALEPLON 5 MG CAPSULE PO PRN (21:06)
[2019-07-28] MEDS: DUTASTERIDE 0.5 MG CAPSULE PO SCH (21:06)
[2019-07-29] MEDS: ACYCLOVIR 5% OINT 15 GM TUBE TOP SCH ×5 (06:06→20:59)
[2019-07-29] MEDS: PANTOPRAZOLE 40 MG TABLET PO SCH (06:26)
[2019-07-29 06:42] LABS: Basophils % 0.5 % (0.0-0.8); Eosinophils # 0.1 10*3/uL (0.0-0.87); Eosinophils % 2.8 % (0.00-10.9); Hematocrit 26.2 VOL% (42.0-52.0); Hemoglobin 8.8 GM/DL (14.0-18.0); Immature Granulocytes % 0.2 %; Immature Granulocytes Absolute 0.01 #; Lymphocytes # 0.5 10*3/uL (1.4-4.0); Lymphocytes % 10.9 % (21.2-54.2); Mean Corpuscular HGB Conc 33.6 GM/DL (32-36); Mean Corpuscular Volume 86.2 FL (87-102); Mean Platelet Volume 12.5 FL (9.6-12.0); Monocytes % 18.1 % (1.7-12.7); Neutrophils % 67.5 % (38.7-73.9); Platelet Count 58 T/CUMM (130-400); Red Blood Count 3.04 MC/CUMM (3.8-5.5); Red Cell Distribution Width 16.1 % (9.3-17.3); White Blood Count 4.3 T/CUMM (4-12)
[2019-07-29] MEDS: DEXTROSE 5% NACL 0.9% 1,000 ML IV SCH ×2 (07:02→10:52)
[2019-07-29 07:05] LABS: Band Neutrophils 1 % (0-10); Eosinophils 4 % (0-10); Lymphocytes 12 % (20-55); Platelet Estimate Decreased; Segmented Neutrophils 74 % (50-85); Total Cells Counted 100
[2019-07-29 07:06] LABS: Anisocytosis 2+; Burr Cells 1+; Hypochromasia 1+
[2019-07-29 07:07] LABS: Macrocytosis Slight
[2019-07-29 07:09] LABS: Osmolality,Calculated 284.2 MOS/KG (273-304)
[2019-07-29 07:13] LABS: Bilirubin,Direct 0.29 MG/DL (0.0-0.20); Bilirubin,Indirect 0.6 MG/DL (0.0-1.0); Bilirubin,Total 0.9 MG/DL (0.2-1.0)
[2019-07-29] MEDS: INSULIN REGULAR 100 UNIT/ML SUBCUT SCH ×4 (07:45→20:33)
[2019-07-29] MEDS: OMEGA 3 ACID ETHYL ESTERS 1 GM CAPSULE PO SCH (08:18)
[2019-07-29] MEDS: FENOFIBRATE 145 MG TABLET PO SCH (08:18)
[2019-07-29] MEDS: CALCIUM (CARBONATE) 500 MG TABLET PO SCH (08:18)
[2019-07-29] MEDS: MONTELUKAST 10 MG TABLET PO SCH (08:18)
[2019-07-29] MEDS: CYANOCOBALAMIN 500 MCG TABLET PO SCH ×2 (08:18→20:32)
[2019-07-29] MEDS: TAMSULOSIN 0.4 MG CAPSULE PO SCH ×2 (08:18→20:32)
[2019-07-29] MEDS: ASCORBIC ACID 500 MG TABLET PO SCH ×2 (08:18→20:32)
[2019-07-29] MEDS: MAGNESIUM OXIDE 400 MG TABLET PO SCH (08:18)
[2019-07-29] MEDS ORDERED: SODIUM CHLORIDE 0.9% 1,000 ML IV PRN (08:38)
[2019-07-29] MEDS ORDERED: FUROSEMIDE 40 MG/4 ML VIAL IV PRN (08:38)
[2019-07-29] MEDS: DUTASTERIDE 0.5 MG CAPSULE PO SCH (20:32)
[2019-07-29] MEDS: ATORVASTATIN 20 MG TABLET PO SCH (20:32)
[2019-07-29] MEDS: ZALEPLON 5 MG CAPSULE PO PRN (23:56)
[2019-07-30 01:01] LABS: Hematocrit 33.8 VOL% (42.0-52.0); Hemoglobin 11.5 GM/DL (14.0-18.0)
[2019-07-30 05:28] LABS: Basophils % 0.7 % (0.0-0.8); Eosinophils # 0.1 10*3/uL (0.0-0.87); Eosinophils % 1.7 % (0.00-10.9); Hematocrit 35.9 VOL% (42.0-52.0); Hemoglobin 11.7 GM/DL (14.0-18.0); Immature Granulocytes % 0.5 %; Immature Granulocytes Absolute 0.02 #; Lymphocytes # 0.5 10*3/uL (1.4-4.0); Lymphocytes % 12.3 % (21.2-54.2); Mean Corpuscular HGB Conc 32.6 GM/DL (32-36); Mean Corpuscular Volume 88.4 FL (87-102); Monocytes % 22.2 % (1.7-12.7); Neutrophils % 62.6 % (38.7-73.9); Platelet Count 64 T/CUMM (130-400); Red Blood Count 4.06 MC/CUMM (3.8-5.5); Red Cell Distribution Width 15.5 % (9.3-17.3); White Blood Count 4.1 T/CUMM (4-12)
[2019-07-30 05:49] LABS: Calcium 9.3 MG/DL (8.5-10.1); Osmolality,Calculated 283.1 MOS/KG (273-304)
[2019-07-30 05:50] LABS: Eosinophils 1 % (0-10); Hypochromasia 1+; Lymphocytes 13 % (20-55); Segmented Neutrophils 66 % (50-85); Total Cells Counted 100
[2019-07-30 05:51] LABS: Burr Cells 1+; Microcytosis 1+; Target Cells Slight
[2019-07-30 05:52] LABS: Anisocytosis 1+; Ovalocytes Slight; Platelet Estimate Decreased
[2019-07-30] MEDS: ACYCLOVIR 5% OINT 15 GM TUBE TOP SCH ×5 (06:23→22:18)
[2019-07-30] MEDS: PANTOPRAZOLE 40 MG TABLET PO SCH (06:23)
[2019-07-30] MEDS: MONTELUKAST 10 MG TABLET PO SCH (08:53)
[2019-07-30] MEDS: CYANOCOBALAMIN 500 MCG TABLET PO SCH ×2 (08:53→22:17)
[2019-07-30] MEDS: CALCIUM (CARBONATE) 500 MG TABLET PO SCH (08:53)
[2019-07-30] MEDS: OMEGA 3 ACID ETHYL ESTERS 1 GM CAPSULE PO SCH (08:53)
[2019-07-30] MEDS: MAGNESIUM OXIDE 400 MG TABLET PO SCH (08:53)
[2019-07-30] MEDS: FENOFIBRATE 145 MG TABLET PO SCH (08:53)
[2019-07-30] MEDS: TAMSULOSIN 0.4 MG CAPSULE PO SCH ×2 (08:53→22:17)
[2019-07-30] MEDS: INSULIN REGULAR 100 UNIT/ML SUBCUT SCH ×4 (08:58→22:06)
[2019-07-30] MEDS: ASCORBIC ACID 500 MG TABLET PO SCH ×2 (10:23→22:17)
[2019-07-30] MEDS: ATORVASTATIN 20 MG TABLET PO SCH (22:17)
[2019-07-30] MEDS: DUTASTERIDE 0.5 MG CAPSULE PO SCH (22:17)
[2019-07-30] MEDS ORDERED: VANCOMYCIN INJ 1,250 MG in SODIUM CHLORIDE 0.9% 250 ML IV ONE (23:00)
[2019-07-31] MEDS: PANTOPRAZOLE 40 MG TABLET PO SCH (06:11)
[2019-07-31] MEDS: ACYCLOVIR 5% OINT 15 GM TUBE TOP SCH ×5 (06:12→22:47)
[2019-07-31 06:20] LABS: Basophils % 0.7 % (0.0-0.8); Eosinophils # 0.1 10*3/uL (0.0-0.87); Eosinophils % 1.8 % (0.00-10.9); Hematocrit 34.3 VOL% (42.0-52.0); Hemoglobin 11.2 GM/DL (14.0-18.0); Immature Granulocytes % 0.5 %; Immature Granulocytes Absolute 0.03 #; Lymphocytes # 0.6 10*3/uL (1.4-4.0); Lymphocytes % 9.5 % (21.2-54.2); Mean Corpuscular HGB Conc 32.7 GM/DL (32-36); Mean Corpuscular Volume 88.4 FL (87-102); Mean Platelet Volume 11.8 FL (9.6-12.0); Monocytes % 18.6 % (1.7-12.7); Neutrophils % 68.9 % (38.7-73.9); Red Blood Count 3.88 MC/CUMM (3.8-5.5); Red Cell Distribution Width 15.7 % (9.3-17.3)
[2019-07-31 06:25] LABS: Platelet Count 63 T/CUMM (130-400)
[2019-07-31 06:38] LABS: Eosinophils 1 % (0-10); Hypochromasia Slight; Lymphocytes 11 % (20-55); Ovalocytes Slight; Platelet Estimate Decreased; Segmented Neutrophils 71 % (50-85); Total Cells Counted 100
[2019-07-31 06:39] LABS: Microcytosis 1+
[2019-07-31 06:47] LABS: Calcium 9.5 MG/DL (8.5-10.1); Osmolality,Calculated 288.8 MOS/KG (273-304)
[2019-07-31] MEDS: INSULIN REGULAR 100 UNIT/ML SUBCUT SCH ×4 (07:24→21:16)
[2019-07-31] MEDS: MONTELUKAST 10 MG TABLET PO SCH (08:15)
[2019-07-31] MEDS: OMEGA 3 ACID ETHYL ESTERS 1 GM CAPSULE PO SCH (08:15)
[2019-07-31] MEDS: TAMSULOSIN 0.4 MG CAPSULE PO SCH ×2 (08:15→21:16)
[2019-07-31] MEDS: FENOFIBRATE 145 MG TABLET PO SCH (08:15)
[2019-07-31] MEDS: MAGNESIUM OXIDE 400 MG TABLET PO SCH (08:15)
[2019-07-31] MEDS: ASCORBIC ACID 500 MG TABLET PO SCH ×2 (08:15→21:16)
[2019-07-31] MEDS: CYANOCOBALAMIN 500 MCG TABLET PO SCH ×2 (08:15→21:15)
[2019-07-31] MEDS: CALCIUM (CARBONATE) 500 MG TABLET PO SCH (08:15)
[2019-07-31] MEDS: ATORVASTATIN 20 MG TABLET PO SCH (21:16)
[2019-07-31] MEDS: DUTASTERIDE 0.5 MG CAPSULE PO SCH (21:16)
[2019-08-01] MEDS: PANTOPRAZOLE 40 MG TABLET PO SCH (06:06)
[2019-08-01 06:17] LABS: Basophils % 0.5 % (0.0-0.8); Eosinophils # 0.1 10*3/uL (0.0-0.87); Eosinophils % 2.2 % (0.00-10.9); Hematocrit 32.3 VOL% (42.0-52.0); Hemoglobin 10.5 GM/DL (14.0-18.0); Immature Granulocytes % 0.3 %; Immature Granulocytes Absolute 0.02 #; Lymphocytes # 0.5 10*3/uL (1.4-4.0); Lymphocytes % 8.1 % (21.2-54.2); Mean Corpuscular HGB Conc 32.5 GM/DL (32-36); Mean Platelet Volume 11.6 FL (9.6-12.0); Monocytes % 17.6 % (1.7-12.7); Neutrophils % 71.3 % (38.7-73.9); Red Blood Count 3.63 MC/CUMM (3.8-5.5); Red Cell Distribution Width 15.9 % (9.3-17.3); White Blood Count 5.9 T/CUMM (4-12)
[2019-08-01 06:20] LABS: Platelet Count 84 T/CUMM (130-400)
[2019-08-01 06:39] LABS: Calcium 9.5 MG/DL (8.5-10.1); Osmolality,Calculated 291.7 MOS/KG (273-304)
[2019-08-01 08:08] LABS: Burr Cells Slight; Eosinophils 3 % (0-10); Hypochromasia 1+; Lymphocytes 8 % (20-55); Ovalocytes Slight; Platelet Estimate Decreased; Segmented Neutrophils 78 % (50-85); Total Cells Counted 100
[2019-08-01 08:09] LABS: Microcytosis 1+
[2019-08-01] MEDS: TAMSULOSIN 0.4 MG CAPSULE PO SCH ×2 (08:50→22:41)
[2019-08-01] MEDS: CYANOCOBALAMIN 500 MCG TABLET PO SCH ×2 (08:50→22:41)
[2019-08-01] MEDS: MONTELUKAST 10 MG TABLET PO SCH (08:50)
[2019-08-01] MEDS: MAGNESIUM OXIDE 400 MG TABLET PO SCH (08:50)
[2019-08-01] MEDS: FENOFIBRATE 145 MG TABLET PO SCH (08:50)
[2019-08-01] MEDS: CALCIUM (CARBONATE) 500 MG TABLET PO SCH (08:50)
[2019-08-01] MEDS: ASCORBIC ACID 500 MG TABLET PO SCH ×2 (08:50→22:42)
[2019-08-01] MEDS: OMEGA 3 ACID ETHYL ESTERS 1 GM CAPSULE PO SCH (08:50)
[2019-08-01] MEDS: INSULIN REGULAR 100 UNIT/ML SUBCUT SCH ×4 (08:52→22:41)
[2019-08-01] MEDS: ACYCLOVIR 5% OINT 15 GM TUBE TOP SCH ×5 (08:54→22:42)
[2019-08-01] MEDS: DUTASTERIDE 0.5 MG CAPSULE PO SCH (22:42)
[2019-08-01] MEDS: ATORVASTATIN 20 MG TABLET PO SCH (22:42)
[2019-08-02] MEDS ORDERED: VANCOMYCIN INJ 1,250 MG in SODIUM CHLORIDE 0.9% 250 ML IV ONE (01:30)
[2019-08-02] MEDS: ACYCLOVIR 5% OINT 15 GM TUBE TOP SCH ×2 (05:59→09:35)
[2019-08-02] MEDS: PANTOPRAZOLE 40 MG TABLET PO SCH (06:21)
[2019-08-02 07:10] LABS: Basophils % 0.5 % (0.0-0.8); Eosinophils # 0.1 10*3/uL (0.0-0.87); Eosinophils % 1.5 % (0.00-10.9); Hematocrit 34.1 VOL% (42.0-52.0); Immature Granulocytes % 0.8 %; Immature Granulocytes Absolute 0.06 #; Lymphocytes # 0.6 10*3/uL (1.4-4.0); Lymphocytes % 8.2 % (21.2-54.2); Mean Corpuscular HGB Conc 32.3 GM/DL (32-36); Mean Platelet Volume 11.9 FL (9.6-12.0); Monocytes % 11.3 % (1.7-12.7); Neutrophils % 77.7 % (38.7-73.9); Platelet Count 113 T/CUMM (130-400); Red Blood Count 3.79 MC/CUMM (3.8-5.5); Red Cell Distribution Width 16.3 % (9.3-17.3); White Blood Count 7.8 T/CUMM (4-12)
[2019-08-02 07:31] LABS: Calcium 9.6 MG/DL (8.5-10.1); Osmolality,Calculated 288.4 MOS/KG (273-304)
[2019-08-02] MEDS: FENOFIBRATE 145 MG TABLET PO SCH (09:28)
[2019-08-02] MEDS: MAGNESIUM OXIDE 400 MG TABLET PO SCH (09:28)
[2019-08-02] MEDS: OMEGA 3 ACID ETHYL ESTERS 1 GM CAPSULE PO SCH (09:29)
[2019-08-02] MEDS: ASCORBIC ACID 500 MG TABLET PO SCH (09:29)
[2019-08-02] MEDS: CYANOCOBALAMIN 500 MCG TABLET PO SCH (09:29)
[2019-08-02] MEDS: MONTELUKAST 10 MG TABLET PO SCH (09:29)
[2019-08-02] MEDS: CALCIUM (CARBONATE) 500 MG TABLET PO SCH (09:29)
[2019-08-02] MEDS: INSULIN REGULAR 100 UNIT/ML SUBCUT SCH ×2 (09:31→12:11)
[2019-08-02] MEDS: TAMSULOSIN 0.4 MG CAPSULE PO SCH (09:31)
[2019-08-02 11:47] VITALS: BP 132/67
[2019-08-04] MEDS ORDERED: VANCOMYCIN INJ 1,250 MG in SODIUM CHLORIDE 0.9% 250 ML IV SCH (09:00)
== END 2019-08-02 13:25 | DRG 377 ==
LOC: EDUNIT# → EDBD → N.ED 09:40 → SUATTDRO 11:49 → N.EDINP 11:49 → N.2E 13:11
PROVIDERS: ADMIT Internal Medicine; ATTEND Internal Medicine

== ENCOUNTER 2019-08-30 11:30 | Inpatient (IN) ==
[2019-08-30] MEDS ORDERED: TEMAZEPAM 15 MG CAPSULE PO PRN (13:13)
[2019-08-30] MEDS ORDERED: ONDANSETRON 4 MG/2 ML VIAL IV PRN (13:15)
[2019-08-30 13:23] LABS: Basophils % 0.3 % (0.0-0.8); Eosinophils % 0.2 % (0.00-10.9); Hematocrit 38.2 VOL% (42.0-52.0); Hemoglobin 11.9 GM/DL (14.0-18.0); Immature Granulocytes % 0.5 %; Immature Granulocytes Absolute 0.05 #; Lymphocytes # 0.6 10*3/uL (1.4-4.0); Lymphocytes % 5.6 % (21.2-54.2); Mean Corpuscular HGB Conc 31.2 GM/DL (32-36); Mean Corpuscular Volume 95.7 FL (87-102); Mean Platelet Volume 10.2 FL (9.6-12.0); Monocytes % 9.4 % (1.7-12.7); Platelet Count 278 T/CUMM (130-400); Red Blood Count 3.99 MC/CUMM (3.8-5.5); White Blood Count 10.2 T/CUMM (4-12)
[2019-08-30] MEDS ORDERED: BENZONATATE 100 MG CAPSULE PO PRN (13:35)
[2019-08-30 13:45] LABS: Albumin 2.6 G/DL (3.4-5.0); Bilirubin,Total 1.4 MG/DL (0.2-1.0); Calcium 9.3 MG/DL (8.5-10.1); Osmolality,Calculated 279.4 MOS/KG (273-304); Total Protein 6.7 G/DL (6.4-8.3)
[2019-08-30] MEDS ORDERED: MAGNESIUM HYDROXIDE SUSP 30 ML UDCUP PO PRN (14:16)
[2019-08-30] MEDS: SULFAMETHOX/TRIMETHOPRIM 800-160 MG TABLET PO SCH ×2 (14:58→21:24)
[2019-08-30] MEDS: INSULIN LISPRO 100 UNIT/ML SUBCUT SCH (16:01)
[2019-08-30] MEDS ORDERED: INSULIN REGULAR 100 UNIT/ML SUBCUT SCH (16:30)
[2019-08-30 20:23] LABS: Apearance,Urine Slightly Hazy (Clear); Bacteria,Urine Many /HPF (Few); Bilirubin,Urine Negative (Negative); Blood, Urine Negative (Negative); Glucose,Urine (UA) 50 mg/dL (Negative); Hyaline Casts,Urine 8 /LPF (0-3); Ketones,Urine 5 mg/dL (Negative); Mucus,Urine Occasional /LPF (Occasional); Nitrite,Urine Negative (Negative); Protein,Urine Negative; Squamous Epithelial Cell,Urine Occasional /HPF (0-10); Urine Color Amber (Yellow); Urine Specific Gravity 1.015 (1.001-1.035); Urine Urobilinogen < 2.0 EU/DL (0.2-1.0); WBC,Urine 3 /HPF (0-6)
[2019-08-30] MEDS ORDERED: FAMOTIDINE 20 MG TABLET PO SCH (21:00)
[2019-08-30] MEDS: CYANOCOBALAMIN 500 MCG TABLET PO SCH (21:24)
[2019-08-30] MEDS: SELENIUM 200 MCG TABLET PO SCH (21:24)
[2019-08-30] MEDS: FUROSEMIDE 40 MG TABLET PO SCH (21:24)
[2019-08-30] MEDS: ASCORBIC ACID 500 MG TABLET PO SCH (21:24)
[2019-08-30] MEDS: DUTASTERIDE 0.5 MG CAPSULE PO SCH (21:25)
[2019-08-30] MEDS: TAMSULOSIN 0.4 MG CAPSULE PO SCH (21:25)
[2019-08-30] MEDS: ATORVASTATIN 20 MG TABLET PO SCH (21:25)
[2019-08-30] MEDS: POTASSIUM CHLORIDE 10 MEQ TABLET PO SCH (21:25)
[2019-08-31] MEDS: INSULIN LISPRO 100 UNIT/ML SUBCUT SCH ×6 (02:41→22:23)
[2019-08-31 05:07] LABS: Basophils % 0.3 % (0.0-0.8); Hematocrit 35.9 VOL% (42.0-52.0); Hemoglobin 11.5 GM/DL (14.0-18.0); Immature Granulocytes % 0.7 %; Immature Granulocytes Absolute 0.05 #; Lymphocytes # 0.4 10*3/uL (1.4-4.0); Lymphocytes % 5.9 % (21.2-54.2); Mean Corpuscular Volume 93.5 FL (87-102); Mean Platelet Volume 10.3 FL (9.6-12.0); Monocytes % 11.1 % (1.7-12.7); Platelet Count 251 T/CUMM (130-400); Red Blood Count 3.84 MC/CUMM (3.8-5.5); Red Cell Distribution Width 21.8 % (9.3-17.3); White Blood Count 7.3 T/CUMM (4-12)
[2019-08-31 05:37] LABS: Albumin 2.5 G/DL (3.4-5.0); Bilirubin,Total 1.6 MG/DL (0.2-1.0); Calcium 9.3 MG/DL (8.5-10.1); Osmolality,Calculated 283.4 MOS/KG (273-304); Total Protein 6.4 G/DL (6.4-8.3)
[2019-08-31] MEDS ORDERED: VANCOMYCIN 1,000 MG VIAL ONE (07:01)
[2019-08-31] MEDS ORDERED: TOBRAMYCIN 1.2 GM VIAL TOP ONE ×3 (07:01→09:24)
[2019-08-31] MEDS ORDERED: INSULIN GLARGINE 100 UNIT/ML SUBCUT SCH (08:00)
[2019-08-31] MEDS ORDERED: MONTELUKAST 10 MG TABLET PO SCH (09:00)
[2019-08-31] MEDS ORDERED: MAGNESIUM OXIDE 400 MG TABLET PO SCH (09:00)
[2019-08-31] MEDS ORDERED: VITAMIN E 400 UNIT CAPSULE PO SCH (09:00)
[2019-08-31] MEDS ORDERED: FENOFIBRATE 145 MG TABLET PO SCH (09:00)
[2019-08-31] MEDS ORDERED: ASPIRIN EC 81 MG TABLET PO SCH (09:00)
[2019-08-31] MEDS ORDERED: ISOSORBIDE MONONITRATE 30 MG TABLET PO SCH (09:00)
[2019-08-31] MEDS ORDERED: CALCIUM (CARBONATE) 500 MG TABLET PO SCH (09:00)
[2019-08-31] MEDS ORDERED: ALBUMIN 5% 12.5 GM/250 ML VIAL IV ONE ×2 (10:01→14:00)
[2019-08-31] MEDS ORDERED: PHENYLEPHRINE 1 MG/10 ML SYRINGE IV ONE ×2 (11:07→14:01)
[2019-08-31] MEDS ORDERED: PHENYLEPHRINE DRIP 20 MG/250 ML PREMIX IV ONE (11:07)
[2019-08-31] MEDS ORDERED: HEPARIN/NACL 0.9% 2 UNITS/ML 500 ML IV ONE (11:14)
[2019-08-31 12:21] LABS: Basophils % 0.3 % (0.0-0.8); Eosinophils % 0.3 % (0.00-10.9); Hematocrit 36.6 VOL% (42.0-52.0); Hemoglobin 11.1 GM/DL (14.0-18.0); Immature Granulocytes % 1.9 %; Lymphocytes # 1.1 10*3/uL (1.4-4.0); Lymphocytes % 10.7 % (21.2-54.2); Mean Corpuscular HGB Conc 30.3 GM/DL (32-36); Mean Corpuscular Volume 99.7 FL (87-102); Mean Platelet Volume 10.2 FL (9.6-12.0); Monocytes % 11.2 % (1.7-12.7); NRBC # 0.02 10*3/uL; Neutrophils % 75.6 % (38.7-73.9); Platelet Count 200 T/CUMM (130-400); Red Blood Count 3.67 MC/CUMM (3.8-5.5); Red Cell Distribution Width 17.3 % (9.3-17.3); White Blood Count 10.6 T/CUMM (4-12)
[2019-08-31] MEDS ORDERED: PHENYLEPHRINE DRIP 40 MG/250 ML PREMIX IV ONE ×2 (12:32→13:39)
[2019-08-31 12:41] LABS: INR 2.3
[2019-08-31 12:43] LABS: ABG Base Excess -22.4 MMOL/L (-2.5-2.5); ABG HCO3 8.7 MMOL/L (20-26); ABG Oxygen Saturation 98.8 % (95-100); ABG PCO2 29.2 MM HG (35-48); ABG TCO2 7.5 MMOL/L (23-27)
[2019-08-31 12:43] LABS: PT Patient Result 23.2 SECS (9.8-11.9); Partial Thromboplastin Time 49.3 SECS (23.9-33.8)
[2019-08-31 12:49] LABS: ABG PH 7.035 (7.35-7.45)
[2019-08-31 13:21] LABS: Calcium 7.4 MG/DL (8.5-10.1); Osmolality,Calculated 302.8 MOS/KG (273-304)
[2019-08-31] MEDS ORDERED: SODIUM BICARBONATE 50 MEQ/50 ML VIAL IV ONE ×5 (13:25→16:25)
[2019-08-31] MEDS ORDERED: CALCIUM CHLORIDE 1,000 MG/10 ML VIAL IV ONE ×2 (13:25→14:00)
[2019-08-31 13:34] LABS: ABG Base Excess -15.3 MMOL/L (-2.5-2.5); ABG HCO3 12.3 MMOL/L (20-26); ABG PCO2 35.2 MM HG (35-48); ABG PO2 151.1 MM HG (80-95); ABG TCO2 13.3 MMOL/L (23-27)
[2019-08-31 13:48] LABS: Troponin I 0.056 NG/ML (0.00-0.045)
[2019-08-31] MEDS ORDERED: MIDAZOLAM 2 MG/2 ML VIAL ONE (13:56)
[2019-08-31] MEDS ORDERED: KETAMINE 500 MG/10 ML VIAL ONE (13:56)
[2019-08-31] MEDS ORDERED: VASOPRESSIN 20 UNITS/ML VIAL ONE (13:58)
[2019-08-31] MEDS ORDERED: propofoL 200 MG/20 ML VIAL IV ONE (13:59)
[2019-08-31] MEDS ORDERED: fentaNYL 100 MCG/2 ML VIAL ONE (14:00)
[2019-08-31] MEDS ORDERED: SEVOFLURANE 1 UNIT/15 MINUTE INH ONE (14:00)
[2019-08-31] MEDS ORDERED: ePHEDrine 50 MG/ML AMP ONE (14:00)
[2019-08-31] MEDS ORDERED: LIDOCAINE 2% 5 ML VIAL ONE (14:00)
[2019-08-31] MEDS ORDERED: EPINEPHrine 1 MG/ML VIAL ONE ×2 (14:00→14:23)
[2019-08-31] MEDS ORDERED: GLYCOPYRROLATE 0.4 MG/2 ML VIAL ONE (14:01)
[2019-08-31] MEDS ORDERED: ROCURONIUM 100 MG/10 ML VIAL IV ONE (14:01)
[2019-08-31] MEDS ORDERED: SODIUM CHLORIDE 0.9% 3,000 ML IV ONE (14:01)
[2019-08-31] MEDS ORDERED: SODIUM CHLORIDE 0.9% 500 ML IV ONE (14:01)
[2019-08-31] MEDS ORDERED: NEOSTIGMINE 10 MG/10 ML VIAL ONE (14:01)
[2019-08-31] MEDS ORDERED: PHENYLEPHRINE 10 MG/1 ML VIAL IV ONE (14:01)
[2019-08-31] MEDS ORDERED: SUCCINYLCHOLINE 200 MG/10 ML VIAL ONE (14:01)
[2019-08-31] MEDS ORDERED: SODIUM CHLORIDE 0.9% 200 ML IV ONE (14:01)
[2019-08-31] MEDS ORDERED: ETOMIDATE 40 MG/20 ML VIAL IV ONE (14:01)
[2019-08-31] MEDS ORDERED: VASOPRESSIN 100 UNITS in SODIUM CHLORIDE 0.9% 95 ML IV PRN (14:04)
[2019-08-31] MEDS: PHENYLEPHRINE DRIP 40 MG/250 ML PREMIX IV PRN ×2 (14:30→16:22)
[2019-08-31] MEDS ORDERED: HYDROCORTISONE 100 MG VIAL ONE (14:39)
[2019-08-31] MEDS ORDERED: HYDROCORTISONE 100 MG VIAL IV ONE (14:45)
[2019-08-31] MEDS: TAMSULOSIN 0.4 MG CAPSULE PO SCH ×2 (14:59→23:15)
[2019-08-31] MEDS: SULFAMETHOX/TRIMETHOPRIM 800-160 MG TABLET PO SCH (14:59)
[2019-08-31] MEDS: POTASSIUM CHLORIDE 10 MEQ TABLET PO SCH (15:00)
[2019-08-31] MEDS: ASCORBIC ACID 500 MG TABLET PO SCH (15:01)
[2019-08-31] MEDS: CYANOCOBALAMIN 500 MCG TABLET PO SCH (15:01)
[2019-08-31] MEDS: SELENIUM 200 MCG TABLET PO SCH (15:01)
[2019-08-31] MEDS ORDERED: ACETAMINOPHEN 325 MG TABLET PO PRN (15:03)
[2019-08-31] MEDS ORDERED: ALBUTEROL 2.5 MG/3 ML NEB RESP TX PRN (15:03)
[2019-08-31] MEDS ORDERED: SODIUM CHLORIDE 0.9% 1,000 ML IV ONE (15:20)
[2019-08-31] MEDS ORDERED: LACTATED RINGERS 1,000 ML IV ONE (15:26)
[2019-08-31 15:39] VITALS: BP 58/35
[2019-08-31] MEDS ORDERED: NOREPINEPHRINE 4 MG/4 ML VIAL IV ONE (15:55)
[2019-08-31] MEDS ORDERED: MEROPENEM 500 MG in SODIUM CHLORIDE 0.9% 100 ML IV SCH (16:00)
[2019-08-31] MEDS: NOREPINEPHRINE 8 MG in SODIUM CHLORIDE 0.9% 242 ML IV PRN ×3 (16:00→22:40)
[2019-08-31 16:16] LABS: ABG HCO3 8.7 MMOL/L (20-26); ABG Oxygen Saturation 98.8 % (95-100); ABG PCO2 24.1 MM HG (35-48); ABG PO2 327.6 MM HG (80-95); ABG TCO2 9.5 MMOL/L (23-27)
[2019-08-31 16:17] LABS: ABG PH 7.177 (7.35-7.45)
[2019-08-31 16:17] LABS: Basophils % 0.1 % (0.0-0.8); Eosinophils % 0.1 % (0.00-10.9); Hematocrit 29.7 VOL% (42.0-52.0); Hemoglobin 9.5 GM/DL (14.0-18.0); Immature Granulocytes % 1.4 %; Immature Granulocytes Absolute 0.29 #; Lymphocytes # 1.1 10*3/uL (1.4-4.0); Lymphocytes % 5.1 % (21.2-54.2); Mean Corpuscular Volume 94.9 FL (87-102); Mean Platelet Volume 10.4 FL (9.6-12.0); Monocytes % 11.9 % (1.7-12.7); NRBC # 0.03 10*3/uL; Neutrophils % 81.4 % (38.7-73.9); Platelet Count 203 T/CUMM (130-400); Red Blood Count 3.13 MC/CUMM (3.8-5.5); Red Cell Distribution Width 17.7 % (9.3-17.3)
[2019-08-31 16:18] LABS: White Blood Count 20.9 T/CUMM (4-12)
[2019-08-31 16:29] LABS: Calcium 8.2 MG/DL (8.5-10.1); Osmolality,Calculated 301.7 MOS/KG (273-304)
[2019-08-31 16:51] LABS: Band Neutrophils 1 % (0-10); Lymphocytes 6 % (20-55); Platelet Estimate Normal; Polychromasia Slight; Reactive Lymphocytes 1+; Segmented Neutrophils 83 % (50-85); Total Cells Counted 100
[2019-08-31] MEDS: MEROPENEM 500 MG in SODIUM CHLORIDE 0.9% 100 ML IV SCH (17:15)
[2019-08-31] MEDS ORDERED: SODIUM BICARB INJ 100 MEQ in SODIUM CHLORIDE 0.45% 1,000 ML IV SCH (17:30)
[2019-08-31] MEDS: PHENYLEPHRINE INJ 160 MG in SODIUM CHLORIDE 0.9% 234 ML IV PRN (18:15)
[2019-08-31] MEDS: FUROSEMIDE 40 MG TABLET PO SCH (19:36)
[2019-08-31] MEDS ORDERED: POTASSIUM CHLORIDE 20 MEQ/15 ML UDCUP NG SCH (21:00)
[2019-08-31] MEDS ORDERED: DEXTROSE 10% 250 ML IV PRN (22:30)
[2019-08-31] MEDS ORDERED: SODIUM BICARB INJ 100 MEQ in DEXTROSE 5% NACL 0.45% 1,000 ML IV SCH (23:00)
[2019-08-31] MEDS: ATORVASTATIN 20 MG TABLET PO SCH (23:15)
[2019-08-31] MEDS: DUTASTERIDE 0.5 MG CAPSULE PO SCH (23:16)
[2019-09-01] MEDS: HYDROCORTISONE 100 MG VIAL IV SCH ×2 (00:02→06:51)
[2019-09-01] MEDS: MEROPENEM 500 MG in SODIUM CHLORIDE 0.9% 100 ML IV SCH (00:02)
[2019-09-01] MEDS: INSULIN LISPRO 100 UNIT/ML SUBCUT SCH ×2 (01:27→04:13)
[2019-09-01] MEDS: PHENYLEPHRINE INJ 160 MG in SODIUM CHLORIDE 0.9% 234 ML IV PRN (01:40)
[2019-09-01] MEDS: NOREPINEPHRINE 8 MG in SODIUM CHLORIDE 0.9% 242 ML IV PRN (02:00)
[2019-09-01 04:33] LABS: ABG Base Excess -24.3 MMOL/L (-2.5-2.5); ABG TCO2 5.6 MMOL/L (23-27)
[2019-09-01 04:34] LABS: ABG PCO2 20.3 MM HG (35-48); ABG PH 7.011 (7.35-7.45)
[2019-09-01] MEDS ORDERED: SODIUM BICARBONATE 50 MEQ/50 ML VIAL IV STA (04:41)
[2019-09-01] MEDS ORDERED: SODIUM BICARBONATE 50 MEQ/50 ML VIAL IV ONE (04:45)
[2019-09-01] MEDS ORDERED: ASPIRIN CHEW 81 MG TABLET PO SCH (09:00)
[2019-09-01] MEDS ORDERED: PANTOPRAZOLE 40 MG VIAL IV SCH (15:30)
== END 2019-09-01 05:44 | disposition expired | DRG 466 ==
LOC: N.3E 12:02 → N.CC 08-31 13:59
PROVIDERS: ADMIT Orthopaedic Surgery; ATTEND Orthopaedic Surgery